=== PATIENT | male | born 1965 | race Caucasian/White ===

== ENCOUNTER 2017-05-17 23:20 | Inpatient (IN) | payer MEDICARE, MEDICAID ==
[~2017-05-17] VITALS: Ht 182.9 cm; Wt 77.0 kg
[2017-05-17 23:31] VITALS: TEMP 97.5
[2017-05-18] VITALS (13 sets, daily range): BP systolic 115–134; BP diastolic 71–90; PULSE 74–101; RESP 18–21; Ht 182.9 cm; Wt 77.0 kg
[2017-05-18] MEDS ORDERED: NITROGLYCERIN 2% 1 GM OINT PKT TD STA (00:36)
[2017-05-18] MEDS ORDERED: ASPIRIN 325 MG TAB PO STA (00:36)
[2017-05-18 00:48] LABS: BASOPHILS % 0.2 % (0.0-2.0); EOSINOPHILS # 0.2 10^3/ul (0.0-0.5); EOSINOPHILS % 2.3 % (0.0-7.0); HEMATOCRIT 41.9 % (42.0-52.0); LYMPHOCYTES # 2.6 10^3/ul (0.8-2.9); LYMPHOCYTES % 31.6 % (15.0-51.0); MEAN CORPUSCULAR HEMOGLOBIN 31.3 pg (29.0-33.0); MEAN CORPUSCULAR HGB CONC 33.4 g/dl (32.0-37.0); MEAN CORPUSCULAR VOLUME 93.7 fl (82.0-101.0); MEAN PLATELET VOLUME 9.8 fl (7.4-10.4); MONOCYTE # 0.4 10^3/ul (0.3-0.9); MONOCYTES % 5.3 % (0.0-11.0); NEUTROPHILS % 60.4 % (39.0-77.0); PLATELET COUNT 364 10^3/UL (140-415); RED BLOOD COUNT 4.47 10^6/ul (4.70-6.10); RED CELL DISTRIBUTION WIDTH 13.2 % (11.5-14.5); WHITE BLOOD COUNT 8.3 10^3/ul (4.8-10.8)
[2017-05-18 00:56] LABS: ALANINE AMINOTRANSFERASE 23 IU/L (13-69); ALBUMIN 3.6 g/dl (3.3-4.9); ALBUMIN/GLOBULIN RATIO 1.28; ALKALINE PHOSPHATASE 80 IU/L (42-121); ANION GAP 13 (8-16); ASPARTATE AMINO TRANSFERASE 16 IU/L (15-46); BILIRUBIN,INDIRECT 0.3 mg/dl (0-1.1); BILIRUBIN,TOTAL 0.3 mg/dl (0.2-1.3); BLOOD UREA NITROGEN 9 mg/dl (7-20); CALCIUM 9.1 mg/dl (8.4-10.2); CARBON DIOXIDE 24 mmol/L (21-31); CHLORIDE 105 mmol/L (97-110); CREATININE 0.58 mg/dl (0.61-1.24); GLUCOSE 154 mg/dl (70-220); POTASSIUM 3.2 mmol/L (3.5-5.1); SODIUM 139 mmol/L (135-144); TOTAL PROTEIN 6.4 g/dl (6.1-8.1)
[2017-05-18 01:09] LABS: INR 0.97; PROTIME 12.9 Sec (12.2-14.2)
[2017-05-18 01:10] LABS: PARTIAL THROMBOPLASTIN TIME 33.3 Sec (25.0-35.0)
--- NOTE | 2017-05-18 01:17 | RADRPT ---
PROCEDURE: XR Chest. CLINICAL INDICATION: Chest pain. TECHNIQUE: Single frontal view of the chest COMPARISON: None. FINDINGS: Cardiomegaly. Atherosclerotic calcifications in the thoracic aorta. Mild discoid atelectasis at the left lung base. The lungs are otherwise clear. No signs of pleural fluid or pneumothorax are seen. T he osseous structures and soft tissues are unremarkable. IMPRESSION: Mild discoid atelectasis at the left lung base. RPTAT: [facility] Physician Gilmer Date Time Electronically viewed and signed by Physician Gilmer on 05/18/2017 01:16 RS/
[2017-05-18 01:22] LABS: TROPONIN-I < 0.012 ng/ml (0.00-0.12)
--- NOTE | 2017-05-18 03:31 | ERA ---
ER Documentation Chief Complaint Date/Time DATE: 05/18/17 TIME: 03:27 Chief Complaint CP radiates to left arm x 2 hrs or 2 days; from [facility] [place] [facility] HPI This is a 52-year-old male here for chest pain. He said the chest pain began yesterday and got worse today. He describes the pain as a pressure in the chest but is a very poor historian. Patient has a history of Lyme disease and is bedridden and unable to walk. He states he has some substernal chest pain radiating down to the left arm or shortness of breath yesterday and today. He resides at a nursing facility and they sent him for evaluation. The patient is a poor historian and is more concerned about getting Rocephin because he thinks his Lyme disease is back pain is about his chest pain. Pain was moderate in nature and currently is gone. ROS All systems reviewed and are negative except as per history of present illness. Medications Home Meds Unable to Obtain Active Prescriptions or Reported Meds Allergies Allergies: Coded Allergies: No Known Allergy (Unverified , 05/17/17) PMhx/Soc Medical and Surgical Hx: Unable to obtain Hx Neurological Disorder: Yes (A+O X 1-2) Hx Cardiac Disorders: Yes (CHEST PAIN X 2 HOURS PER EMS) Hx Alcohol Use: No Hx Substance Use: No Hx Tobacco Use: No Smoking Status: Unknown if ever smoked FmHx Family History: No coronary disease Physical Exam Vitals Vital Signs Date Time Temp Pulse Resp B/P Pulse Ox O2 Delivery O2 Flow Rate FiO2 05/18/17 00:41 Nasal Cannula 2 05/18/17 00:30 73 15 137/92 99 Nasal Cannula 2.0 05/17/17 23:31 97.5 79 14 117/93 96 Nasal Cannula 2.0 05/17/17 23:26 97.9 78 16 121/87 94 Physical Exam Const: Well-developed, well-nourished Head: Atraumatic, normocephalic Eyes: Normal Conjunctiva, PERRLA, EOMI, normal sclera, no nystagmus ENT: Normal External Ears, Nose and Mouth, moist mucus membranes. Neck: Full range of motion. No meningismus, no lymphadenopathy. Resp: Clear to auscultation bilaterally, no wheezing, rhonchi, rales Cardio: Regular rate and rhythm, no murmurs, S1 S2 present Abd: Soft, non tender x 4, non distended. Normal bowel sounds, no guarding or rebound, no pulsitile abdominal masses or bruits Skin: No petechiae or rashes, no ecchymosis , no maculopapular rash Back: No midline or flank tenderness Ext: No cyanosis, or edema, FROM x 4, normal inspection, neurovascularly intact x 4 Neur: Awake and alert, bilateral weak lower extremities which is chronic feet and hands have contractures upper extremities 4-5/5 sensation intact x 4, no focal findings, cerebellum intact Psych: Normal Mood and Affect Result Diagram: 05/17/17 2325 05/17/17 2325 Results 24 hrs Laboratory Tests Test 05/17/17 23:25 White Blood Count 8.310^3/ul Red Blood Count 4.4710^6/ul Hemoglobin 14.0g/dl Hematocrit 41.9% Mean Corpuscular Volume 93.7fl Mean Corpuscular Hemoglobin 31.3pg Mean Corpuscular Hemoglobin Concent 33.4g/dl Red Cell Distribution Width 13.2% Platelet Count 78943^3/UL Mean Platelet Volume 9.8fl Neutrophils % 60.4% Lymphocytes % 31.6% Monocytes % 5.3% Eosinophils % 2.3% Basophils % 0.2% Nucleated Red Blood Cells % 0.0/100WBC Neutrophils # 5.010^3/ul Lymphocytes # 2.610^3/ul Monocytes # 0.410^3/ul Eosinophils # 0.210^3/ul Basophils # 0.010^3/ul Nucleated Red Blood Cells # 0.010^3/ul Prothrombin Time 12.9Sec Prothrombin Time Ratio 1.0 INR International Normalized Ratio 0.97 Activated Partial Thromboplast Time 33.3Sec Sodium Level 139mmol/L Potassium Level 3.2mmol/L Chloride Level 105mmol/L Carbon Dioxide Level 24mmol/L Anion Gap 13 Blood Urea Nitrogen 9mg/dl Creatinine 0.58mg/dl Glucose Level 154mg/dl Calcium Level 9.1mg/dl Total Bilirubin 0.3mg/dl Direct Bilirubin 0.00mg/dl Indirect Bilirubin 0.3mg/dl Aspartate Amino Transf (AST/SGOT) 16IU/L Alanine Aminotransferase (ALT/SGPT) 23IU/L Alkaline Phosphatase 80IU/L Troponin I < 0.012ng/ml Total Protein 6.4g/dl Albumin 3.6g/dl Globulin 2.80g/dl Albumin/Globulin Ratio 1.28 Current Medications Medications (Trade) Dose Ordered Sig/Nohemi Route PRN Reason Start Time Stop Time Status Last Admin Dose Admin Aspirin (Aspirin) 325 mg ONCE STAT PO 05/18/17 00:36 05/18/17 00:37 DC 05/18/17 01:23 Nitroglycerin (Nitroglycerin 2% Oint) 1 inch ONCE STAT TD 05/18/17 00:36 05/18/17 00:37 DC 05/18/17 01:23 Procedures/MDM PROCEDURE: XR Chest. CLINICAL INDICATION: Chest pain. TECHNIQUE: Single frontal view of the chest COMPARISON: None. FINDINGS: Cardiomegaly. Atherosclerotic calcifications in the thoracic aorta. Mild discoid atelectasis at the left lung base. The lungs are otherwise clear. No signs of pleural fluid or pneumothorax are seen. The osseous structures and soft tissues are unremarkable. IMPRESSION: Mild discoid atelectasis at the left lung base. RPTAT: [facility] Physician Gilmer Date Time Electronically viewed and signed by Physician Gilmer on 05/18/2017 01:16 RS/ CC: DEBBIE CASTILLO DO EKG: Rate/Rhythm: Normal Sinus Rhythm,NL intervals QRS, ST, QT: NORMAL NE, QRS, QT] Impression: NORMAL EKG Patient's symptoms are concerning for cardiac cause will require inpatient workup and continuous monitoring. Further w/u for ischemia, arrhythmia, PE or dissection will be deferred to the inpatient team. Accepting Care Team: Current data and ongoing care discussed. Time: Time of admission Primary Provider: STEPHANIE Consulting: STEPHANIE Outstanding Data: none Departure Diagnosis: Primary Impression: Chest pain Qualified Code: R07.9 - Chest pain, unspecified type Condition: Stable DEBBIE CASTILLO DO May 18, 2017 03:31
[2017-05-18] MEDS ORDERED: ONDANSETRON 4 MG INJ IV PRN (04:00)
[2017-05-18] MEDS ORDERED: ACETAMINOPHEN 325 MG TAB PO PRN ×2 (04:00→06:30)
[2017-05-18] MEDS ORDERED: NITROGLYCERIN (SL) 0.4 MG TAB SL PRN (06:30)
[2017-05-18] MEDS: HEPARIN 5,000 UNIT/0.5 ML VIAL SC SCH ×2 (09:29→20:37)
[2017-05-18] MEDS: ASPIRIN 81 MG TAB PO SCH (09:29)
[2017-05-18] MEDS: METOPROLOL 25 MG TAB PO SCH ×2 (09:30→20:36)
--- NOTE | 2017-05-18 09:49 | HP ---
Date/Time of Note Date/Time of Note DATE: 05/18/17 TIME: 09:40 Assessment/Plan VTE Prophylaxis VTE Prophylaxis Intervention: SCD's Lines/Catheters IV [facility] Peripheral IV Urinary Cath still in place: No Assessment/Plan Assessment/Plan 1. Chest pain, rule out ACS -Supplemental oxygen, as needed nitro and morphine. Beta-edwina if pressure allows -Obtain a 2D echo -Cardiology consult 2. 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 Scalp psoriasis - Topical steroid HPI/ROS Admit Date/Time Admit Date/Time May 18, 2017 at 03:32 Hx of Present Illness This is a 52-year-old paraplegic male who presented from [facility] for evaluation of chest pain. He said he has been paraplegic for the past several months as a result of "Lyme infection". Chest pain is slightly left- sided and pressure-like and has been going on for the past 4 days. He reported associated shortness of breath. Denied history of chest pain. As far as Lyme disease is concerned, he said he was treated with Rocephin for a month, but when he got better he stopped taking the antibiotic prematurely. He thinks that is what resulted in the paraplegia. He said if Rocephin is resumed, he should be able to walk again. He is asking for a placement of a PICC line and initiation of Rocephin. . PMH/Family/Social Social History Smoking Status: Unknown if ever smoked Exam/Review of Systems Vital Signs Vitals Vital Signs Date Time Temp Pulse Resp B/P Pulse Ox O2 Delivery O2 Flow Rate FiO2 05/18/17 08:46 85 05/18/17 07:09 97.7 21 119/89 95 05/18/17 06:00 Nasal Cannula 2.0 Exam Constitutional: alert, oriented, other (Increased effort needed when speaking) Head: other (Upper forehead/frontal scalp lesion) Eyes: EOMI, PERRL Respiratory: clear to auscultation, normal air movement Cardiovascular: nl pulses, regular rate and rhythm Gastrointestinal: non-tender, soft Musculoskeletal: other (Bilateral lower extremity with some muscle wasting) Extremities: other (Some muscle wasting noted) Neurological: other (Bilateral lower extremity paralysis) Labs Result Diagram: 05/17/17 5680 05/17/17 2325 Medications Medications Current Medications Aspirin (Aspirin) 81 mg DAILY PO Last administered on 05/18/17 09:29; Admin Dose 81 MG; Start 05/18/17 at 09:00 Nitroglycerin (Nitroglycerin (Sl Tab) 0.4 Mg) 1 tab Q5M PRN SL ANGINA; Start at 06:30 Heparin Sodium (Porcine) (Heparin (5000 Units/0.5 ml)) 5,000 unit BID SC Last administered on 05/18/17 09:29; Admin Dose 5,000 UNIT; Start 05/18/17 at 09:00 Metoprolol Tartrate (Lopressor) 25 mg BID PO Last administered on 05/18/17 09: 30; Admin Dose 25 MG; Start 05/18/17 at 09:00 Acetaminophen (Tylenol Tab) 650 mg Q6H PRN PO PAIN AND OR ELEVATED TEMP; Start 05/18/17 at 06:30 Morphine Sulfate (morphine) 2 mg Q4H PRN IV SEVERE PAIN LEVEL 7-10; Start 05/18 at 06:30 TRINIDAD WEST MD May 18, 2017 09:49
[2017-05-18] MEDS ORDERED: POTASSIUM CHLORIDE (SR) 20 MEQ TAB PO STA (11:56)
[2017-05-18] MEDS ORDERED: PENDING SANTYL ORDER FOR WOUND CARE XX PRN (12:30)
[2017-05-18] MEDS: morphine 2 MG INJ IV PRN (22:42)
[2017-05-19] VITALS (10 sets, daily range): BP systolic 132–177; BP diastolic 74–92; PULSE 70–90; RESP 18–21
[2017-05-19 07:51] LABS: BASOPHILS % 0.3 % (0.0-2.0); EOSINOPHILS # 0.1 10^3/ul (0.0-0.5); EOSINOPHILS % 0.7 % (0.0-7.0); HEMATOCRIT 45.6 % (42.0-52.0); HEMOGLOBIN 14.8 g/dl (14.0-18.0); LYMPHOCYTES # 2.5 10^3/ul (0.8-2.9); LYMPHOCYTES % 22.9 % (15.0-51.0); MEAN CORPUSCULAR HGB CONC 32.5 g/dl (32.0-37.0); MEAN CORPUSCULAR VOLUME 92.5 fl (82.0-101.0); MEAN PLATELET VOLUME 10.1 fl (7.4-10.4); MONOCYTE # 0.8 10^3/ul (0.3-0.9); MONOCYTES % 7.2 % (0.0-11.0); NEUTROPHIL # 7.3 10^3/ul (1.6-7.5); NEUTROPHILS % 68.6 % (39.0-77.0); PLATELET COUNT 365 10^3/UL (140-415); RED BLOOD COUNT 4.93 10^6/ul (4.70-6.10); RED CELL DISTRIBUTION WIDTH 13.4 % (11.5-14.5); WHITE BLOOD COUNT 10.7 10^3/ul (4.8-10.8)
[2017-05-19 08:21] LABS: CALCIUM 9.5 mg/dl (8.4-10.2); CREATININE 0.64 mg/dl (0.61-1.24); POTASSIUM 4.7 mmol/L (3.5-5.1)
[2017-05-19] MEDS: HEPARIN 5,000 UNIT/0.5 ML VIAL SC SCH ×2 (09:00→21:00)
[2017-05-19] MEDS: ASPIRIN 81 MG TAB PO SCH (09:03)
[2017-05-19] MEDS: METOPROLOL 25 MG TAB PO SCH ×2 (09:04→21:40)
[2017-05-19] MEDS ORDERED: NA PHOSPHATE/BIPHOS 133 ML ENEMA PR ONE (17:00)
--- NOTE | 2017-05-19 18:42 | PN ---
Date/Time of Note Date/Time of Note DATE: 05/19/17 TIME: 18:32 Assessment/Plan VTE Prophylaxis VTE Prophylaxis Intervention: heparin Lines/Catheters [facility] Saline Lock Urinary Cath still in place: No Assessment/Plan Chief Complaint/Hosp Course 1. Chest pain-muscular -No evidence of ACS 2. Paraplegia, per patient secondary to [place] infection but story does not make sense -ID consult obtained 3. Scalp psoriasis - Topical steroid Prophylaxis: Heparin Problems: Subjective 24 Hr Interval Summary Gastrointestinal: other (Hungry) Exam/Review of Systems Vital Signs Vitals Vital Signs Date Time Temp Pulse Resp B/P Pulse Ox O2 Delivery O2 Flow Rate FiO2 05/19/17 17:10 84 05/19/17 11:37 98.6 18 137/92 96 05/18/17 06:00 Nasal Cannula 2.0 Intake and Output 05/18/17 05/18/17 05/19/17 15:00 23:00 07:00 Intake Total 720 ml Balance 720 ml Exam Constitutional: alert, oriented Respiratory: clear to auscultation Cardiovascular: regular rate and rhythm Gastrointestinal: soft, No distended Musculoskeletal: nl extremities to inspection Results Result Diagram: 05/19/17 0659 05/19/17 0659 Results 24 hrs Laboratory Tests Test 05/18/17 19:54 05/19/17 06:59 Troponin I < 0.012 C-Reactive Protein 1.2 H White Blood Count 10.7 # Red Blood Count 4.93 Hemoglobin 14.8 Hematocrit 45.6 Mean Corpuscular Volume 92.5 Mean Corpuscular Hemoglobin 30.0 Mean Corpuscular Hemoglobin Concent 32.5 Red Cell Distribution Width 13.4 Platelet Count 365 Mean Platelet Volume 10.1 Neutrophils % 68.6 Lymphocytes % 22.9 Monocytes % 7.2 Eosinophils % 0.7 Basophils % 0.3 Nucleated Red Blood Cells % 0.0 Neutrophils # 7.3 Lymphocytes # 2.5 Monocytes # 0.8 Eosinophils # 0.1 Basophils # 0.0 Nucleated Red Blood Cells # 0.0 Erythrocyte Sedimentation Rate 10.0 Sodium Level 140 Potassium Level 4.7 Chloride Level 107 Carbon Dioxide Level 22 Anion Gap 16 Blood Urea Nitrogen 14 Creatinine 0.64 Glucose Level 92 # Calcium Level 9.5 Medications Medications Current Medications Aspirin (Aspirin) 81 mg DAILY PO Last administered on 05/19/17t 09:03; Admin Dose 81 MG; Start 05/18/17 at 09:00 Nitroglycerin (Nitroglycerin (Sl Tab) 0.4 Mg) 1 tab Q5M PRN SL ANGINA; Start at 06:30 Heparin Sodium (Porcine) (Heparin (5000 Units/0.5 ml)) 5,000 unit BID SC Last administered on 05/18/17 09:29; Admin Dose 5,000 UNIT; Start 05/18/17 at 09:00 Metoprolol Tartrate (Lopressor) 25 mg BID PO Last administered on 05/19/17 09: 04; Admin Dose 25 MG; Start 05/18/17 at 09:00 Acetaminophen (Tylenol Tab) 650 mg Q6H PRN PO PAIN AND OR ELEVATED TEMP; Start 05/18/17 at 06:30 Morphine Sulfate (morphine) 2 mg Q4H PRN IV SEVERE PAIN LEVEL 7-10 Last administered on 05/18/17 22:42; Admin Dose 2 MG; Start 05/18/17 at 06:30 Miscellaneous Information (Pending [facility] Order For Wound Care) This patient lara... PRN PRN XX WOUND CARE; Start 05/18/17 at 12:30 JARON MCKEON May 19, 2017 18:42
[2017-05-20] VITALS (11 sets, daily range): BP systolic 120–148; BP diastolic 69–97; PULSE 71–84; RESP 18–24
--- NOTE | 2017-05-20 00:47 | PN ---
DATE: 05/19/2017 SUBJECTIVE DATA: No events overnight. Patient is lying comfortably in bed. He is afebrile. OBJECTIVE DATA: VITAL SIGNS: Temperature 98.6, pulse 86, respirations 18, blood pressure 137/92, saturation 96 percent. LABORATORY DATA: WBC 10.7, no shift, no bands. BUN 14, creatinine 0.64. GENERAL: This is a debilitated, chronically ill-appearing, middle-aged white man who is in no distress. HEENT: Head atraumatic, normocephalic. Sclerae anicteric. Buccal mucosa dry. NECK: Supple. CHEST: Rise symmetrical. Breath sounds clear. HEART: S1, S2. ABDOMEN: Soft, bowel sounds present. EXTREMITIES: Wasted. SKIN: No jaundice. No cyanosis. Patient has erythema on his scalp. ASSESSMENT: 1. Paraplegia. 2. History of Lyme disease treated with Rocephin. 3. Status post chest pain. Troponin was negative. 4. Incomplete data, as patient is a poor historian. PLAN: Patient is clinically and hemodynamically stable. He is afebrile and without leukocytosis. There is no evidence of acute infectious process and there is no history available on his baseline mental and neurologic status. Will continue observing him off antibiotics, consider neurological evaluation. We will thomas-culture him if he spikes fever. Dictated By: Chante Mendes NP /mar/anand /Document#: [id number]
--- NOTE | 2017-05-20 06:21 | CONS ---
DATE OF ADMISSION: 05/18/2017 DATE OF CONSULTATION: 05/20/2017 REFERRING PHYSICIAN: Hugh Caro MD. HISTORY OF PRESENT ILLNESS: The patient is a 52-year-old, white male, [facility] with chest pain radiating to the left arm, occurring several hours to 2 days prior to admission. The patient was admitted to the hospital and complained also that he had Lyme disease 7 months ago in [place], [place], and was taken care of by Dr. Beau Pate. He states that he had presented with numbness over the upper torso. He also states he had at some point, a target lesion in back of his left ear and neck. He states his dog had this same problem but did not have any rash. I do not know how he could get a history of numbness with the dog, but anyway that is what the history contains. He states that he was treated with a 1-month course of ceftriaxone, and he felt so much better that he stopped taking it. Dr. Pate advised him that if he did not take 3-6 month treatment course, the disease would "bite him on the ass." He states that after that time, he had difficulty walking and became paraplegic. He states that in spite of that he did not except any further treatment; he said because he did not have any money. Somehow, the patient got down here from the jail facility, and on arrival of the hospital here, he had a white count of 8300, 64 polys, 32 lymphs, 5 monocytes, 2 eosinophils, hemoglobin of 14.9 grams, sedimentation rate 10 mm/hour. Chest x- ray revealed left basilar discoid atelectasis. Hematocrit was 42 percent. The patient had on admission a temperature is 98.3, pulse 100, respirations 20, blood pressure 177/74, O2 saturation was 96 percent on room air. He had an electrocardiogram, which revealed a normal sinus rhythm and a normal electrocardiogram. The patient states the he wants to have more ceftriaxone treatment because he thinks his paraplegia will get better. PHYSICAL EXAMINATION: GENERAL: Reveals a talkative, fair-skinned white male who is basically flushed all over and has male pattern baldness and close cropped blond hair. HEENT: He has areas on the apex of his scalp that appeared to be early basal cell carcinomas in the form of the having small superficial hematomas over the area. The pupils are dilated and sluggishly reactive. The patient speaks with a slurred speech. NECK: Supple. CHEST: Clear to auscultation. HEART: Regular, except it is somewhat fast being 92. ABDOMEN: Soft. No palpable organs or masses. EXTREMITIES: Both legs are cold. He has gross touch in place. He does not have any 2-point discrimination, and he has no position sense or any bilateral heel cord shortening. He has no motor function in his lower extremities. IMPRESSION: 1. Chest pain, probably musculoskeletal. 2. Paraplegia. 3. History of Lyme disease with treatment of 1 month with ceftriaxone 7 months ago. RECOMMENDATIONS: I would obtain a neurology consultation, MRI of the head with and without contrast and with IV contrast. I have seen this patient for Dr. Baudilio Luke. Dictated By: José Griggs MD /mar/sal /Document#: [id number]
[2017-05-20] MEDS: ASPIRIN 81 MG TAB PO SCH (08:14)
[2017-05-20] MEDS: METOPROLOL 25 MG TAB PO SCH ×2 (08:14→20:38)
[2017-05-20] MEDS: HEPARIN 5,000 UNIT/0.5 ML VIAL SC SCH ×2 (08:18→20:39)
--- NOTE | 2017-05-20 14:50 | PN ---
Date/Time of Note Date/Time of Note DATE: 05/20/17 TIME: 14:46 Assessment/Plan VTE Prophylaxis VTE Prophylaxis Intervention: heparin Lines/Catheters IV Catheter Type (from [facility]rs[facility]): Saline Lock Assessment/Plan Chief Complaint/Hosp Course 1. Chest pain-muscular -No evidence of ACS 2. Paraplegia, per patient secondary to [place] infection but story does not make sense -ID consult appreciated, no further antibiotics recommended -Neurology consultation obtained 3. Scalp psoriasis - Topical steroid Prophylaxis: Heparin Problems: Subjective 24 Hr Interval Summary Constitutional: no complaints Exam/Review of Systems Vital Signs Vitals Vital Signs Date Time Temp Pulse Resp B/P Pulse Ox O2 Delivery O2 Flow Rate FiO2 05/20/17 12:12 71 05/20/17 11:59 98.0 20 139/83 96 05/18/17 06:00 Nasal Cannula 2.0 Intake and Output 05/19/17 05/19/17 05/20/17 15:00 23:00 07:00 Intake Total 680 ml Output Total 200 ml Balance 480 ml Exam Constitutional: alert Respiratory: clear to auscultation Cardiovascular: regular rate and rhythm Gastrointestinal: soft, No distended Musculoskeletal: nl extremities to inspection Results Result Diagram: 05/19/17 0659 05/19/17 0659 Medications Medications Current Medications Aspirin (Aspirin) 81 mg DAILY PO Last administered on 05/20/17 08:14; Admin Dose 81 MG; Start 05/18/17 at 09:00 Nitroglycerin (Nitroglycerin (Sl Tab) 0.4 Mg) 1 tab Q5M PRN SL ANGINA; Start at 06:30 Heparin Sodium (Porcine) (Heparin (5000 Units/0.5 ml)) 5,000 unit BID SC Last administered on 05/18/17 09:29; Admin Dose 5,000 UNIT; Start 05/18/17 at 09:00 Metoprolol Tartrate (Lopressor) 25 mg BID PO Last administered on 05/20/17 08: 14; Admin Dose 25 MG; Start 05/18/17 at 09:00 Acetaminophen (Tylenol Tab) 650 mg Q6H PRN PO PAIN AND OR ELEVATED TEMP; Start 05/18/17 at 06:30 Morphine Sulfate (morphine) 2 mg Q4H PRN IV SEVERE PAIN LEVEL 7-10 Last administered on 9/14/17at 22:42; Admin Dose 2 MG; Start 05/18/17 at 06:30 Miscellaneous Information (Pending [facility] Order For Wound Care) This patient lara... PRN PRN XX WOUND CARE; Start 05/18/17 at 12:30 JARON MCKEON May 20, 2017 14:50
--- NOTE | 2017-05-20 15:35 | CONS ---
Date/Time of Note Date/Time of Note DATE: 05/20/17 TIME: 15:35 Assessment/Plan Assessment/Plan Chief Complaint/Hosp Course came to see the pt, taken to MRI, will do tomorrow Problems: EYAL EVANS MD May 20, 2017 15:35
[2017-05-21] VITALS (12 sets, daily range): BP systolic 127–156; BP diastolic 78–97; PULSE 72–99; RESP 15–20
[2017-05-21] MEDS: morphine 2 MG INJ IV PRN (01:16)
[2017-05-21] MEDS: LORAZEPAM 1 MG TAB PO PRN (04:05)
[2017-05-21] MEDS ORDERED: morphine 2 MG INJ IV PRN (04:30)
--- NOTE | 2017-05-21 08:22 | RADRPT ---
PROCEDURE: MRI Brain without contrast. CLINICAL INDICATION: Altered mental status, paraplegia, Lyme disease TECHNIQUE: Routine MRI of the brain performed without intravenous contrast. COMPARISON: None FINDINGS: Diffusion: No evidence of acute infarct, recent ischemia, or recent ictal focus. Hemorrhage: No evidence of focal hematoma or subarachnoid hemorrhage. No evidence for remote blood d egradation products. Mass effect/midline shift: None. Parenchymal volume: Mild central parenchymal volume loss is evident. Ventricular system: Concordant with the degree of parenchymal volume. Parenchymal signal changes: Numerous T2 - FLAIR hyperintense foci are present predominately within t he periventricular white matter as well as scattered lesions within the juxta cortical white matter of both cerebral hemispheres. Additionally a foci of increased T2 signal are observed within the kiera s and left cerebral hemisphere. Vasculature: Appropriate flow voids suggesting patency of the central arterial system and visualize d dural venous sinuses. Paranasal sinuses: Clear. Mastoid air cells: Clear. Calvarium: Within normal limits. Extracranial soft tissues: Within normal limits. IMPRESSION: No evidence of acute ischemic changes, mass effect, or intracranial hemorrhage. Numerous T2 - FLAIR hyperintense lesions within the periventricular white matter of both cerebral he mispheres with additional lesions noted in the juxta cortical white matter, wally, and left cerebella r hemisphere concerning for demyelinating lesions. Other infectious/inflammatory process are not exc luded. A contrast-enhanced examination is suggested to assess for acute lesions. RPTAT: AADD .Hugh Lemon MD, Date Time Electronically viewed and signed by .Hugh Lemon MD, on 05/21/2017 08:22 .B/
[2017-05-21 08:25] LABS: CALCIUM 9.7 mg/dl (8.4-10.2); CREATININE 0.58 mg/dl (0.61-1.24); PHOSPHORUS 4.2 mg/dl (2.5-4.9); POTASSIUM 4.3 mmol/L (3.5-5.1)
[2017-05-21] MEDS: ASPIRIN 81 MG TAB PO SCH (10:03)
[2017-05-21] MEDS: HEPARIN 5,000 UNIT/0.5 ML VIAL SC SCH ×2 (10:04→20:36)
[2017-05-21] MEDS: METOPROLOL 25 MG TAB PO SCH ×2 (10:05→20:28)
[2017-05-21] MEDS: METHYLPRED. NA SUCC 1,000 MG in DEXTROSE 5% 50 ML IVPB SCH (18:00)
--- NOTE | 2017-05-21 18:01 | CONS ---
DATE OF ADMISSION: 05/18/2017 DATE OF CONSULTATION: 05/21/2017 Thank you, Dr. Campa for your kind referral for evaluation of Lyme versus multiple sclerosis. HISTORY OF PRESENT ILLNESS: Patient is a 52-year-old gentleman who was transferred from a half-way facility, with complaints of chest pain as well as pain in the left arm, with some possibly weakness in the arm. Patient is not a great historian. But apparently, he stated that he was doing fine until 6 or 7 months ago, when he developed lower paraplegia and was diagnosed with Lyme disease, treated with 1 month of ceftriaxone. He had MRI of the brain in the hospital without contrast, which shows white-matter disease, suspicious for a MS, with some lesions oriented perpendicular to the ventricles. On questioning if patient ever was told that he had a MS, he stated that they were all guessing, but it was one of the guesses in the past. So it is not truly clear if he had any workup done. He stated that he did not have MRI of the spine, which I found strange to believe, given his paraplegia. Again, I am not sure so how good historian he is. MEDICATION: Prior to admission were not available, actually. In the hospital, he is on: 1. Morphine and Ativan for pain. 2. Aspirin 81 mg. 3. Heparin for DVT prevention. 4. Lopressor 25 twice daily. 5. Tylenol p.r.n. SOCIAL HISTORY: No alcohol, tobacco, or drug use. Resident of half-way facility. ALLERGIES: NONE. FAMILY HISTORY: Unrevealing. PHYSICAL EXAMINATION: VITAL SIGNS: Show 97.6 temperature, 74 pulse, 20 respirations, 144/84 blood pressure. GENERAL APPEARANCE: Not in acute distress. Lying in bed. HEENT: Normocephalic, atraumatic head. NECK: No meningeal signs. Patient has some stiffness of the neck to all movements, not only on flexion. LUNGS: Clear to auscultation lungs bilaterally. HEART: Normal cardiac rhythm and sounds. ABDOMEN: Soft. EXTREMITIES: No cyanosis, clubbing, or edema. NEUROLOGIC: Exam: He is awake, alert, and oriented x2. He complains of feeling confused. He has somewhat scanning speech. Visual guerra preserved bilaterally. Pupils reactive from 3-2 mm bilaterally. He has left-sided exotropia and on attempted left gaze, he develops left-beating nystagmus of the left eye and somewhat limited adduction of the right eye. Patient denied any double vision to me. Symmetrical face. Tongue is on midline. Palate elevates symmetrically. Corneal reflexes present bilaterally, as well as gag. Motor strength examination shows weakness in bilateral upper extremities, about 3/5, maybe slightly better on the right. Increased tone, with spasticity on the left. Lower extremities: No movements, increased tone bilaterally, severe paresthesias. Sensory examination grossly intact to light touch, pain and vibration. Deep tendon reflexes: Unable to obtain in the lower extremities, 1+ upper extremities. Equivocal response to plantar stimulation bilaterally. Coordination examination in the right upper extremity, on finger- to-finger testing shows mild tremulousness and dysmetria. LABORATORY: Shows normal CBC, normal comprehensive metabolic panel, normal B12. Elevated C-reactive protein 1.2. ESR normal, at 10. Normal PT, PTT. IMPRESSION: Probable multiple sclerosis. Patient complains of left upper extremity pain and weakness. Complains of being confused. He is not the best historian, so cannot rule out acute exacerbation. I think it is reasonable to give 3 days of IV Solu- Medrol 1 g daily for possible exacerbation. Will obtain MRI of the brain post-contrast study, as well as MRI of the cervical, and thoracic spine for further evaluation as well as lumbar puncture. I doubt that patient patient's symptoms relate to Lyme disease. Continue current treatment. Thank you very much for this interesting consultation. Physical therapy. Dictated By: Leonardo Liu MD /mar/federico /Document#: [id number] NICHOLAS
--- NOTE | 2017-05-21 18:53 | PN ---
Date/Time of Note Date/Time of Note DATE: 05/21/17 TIME: 18:52 Assessment/Plan VTE Prophylaxis VTE Prophylaxis Intervention: heparin Lines/Catheters IV Catheter Type (from Nrs): Saline Lock Assessment/Plan Chief Complaint/Hosp Course 1. Chest pain-muscular -No evidence of ACS 2. Paraplegia, per patient secondary to [place] infection but story does not make sense -ID consult appreciated, no further antibiotics recommended -Neurology consultation appreciated -MRI shows demyelinating process, high-dose steroids have been initiated 3. Scalp psoriasis - Topical steroid Prophylaxis: Heparin Problems: Subjective 24 Hr Interval Summary Constitutional: no complaints Exam/Review of Systems Vital Signs Vitals Vital Signs Date Time Temp Pulse Resp B/P Pulse Ox O2 Delivery O2 Flow Rate FiO2 05/21/17 16:50 98.0 73 20 137/81 98 05/18/17 06:00 Nasal Cannula 2.0 Intake and Output 05/20/17 05/20/17 05/21/17 15:00 23:00 07:00 Intake Total 1420 ml 180 ml Output Total 650 ml Balance 770 ml 180 ml Exam Constitutional: alert, oriented Respiratory: clear to auscultation Cardiovascular: regular rate and rhythm Gastrointestinal: soft, No distended Musculoskeletal: nl extremities to inspection Results Result Diagram: 05/19/17 0659 05/21/17 0731 Results 24 hrs Laboratory Tests Test 05/21/17 07:31 Sodium Level 140 Potassium Level 4.3 Chloride Level 109 Carbon Dioxide Level 24 Anion Gap 11 Blood Urea Nitrogen 14 Creatinine 0.58 L Glucose Level 107 Hemoglobin A1c 5.3 Calcium Level 9.7 Phosphorus Level 4.2 Magnesium Level 2.0 Vitamin B12 Level 663 Rapid Plasma Reagin NONREACTIVE HIV (1&2) Antibody NEGATIVE Medications Medications Current Medications Aspirin (Aspirin) 81 mg DAILY PO Last administered on 05/21/17 10:03; Admin Dose 81 MG; Start 05/18/17 at 09:00 Nitroglycerin (Nitroglycerin (Sl Tab) 0.4 Mg) 1 tab Q5M PRN SL ANGINA; Start at 06:30 Heparin Sodium (Porcine) (Heparin (5000 Units/0.5 ml)) 5,000 unit BID SC Last administered on 05/21/17 10:04; Admin Dose 5,000 UNIT; Start 05/18/17 at 09:00 Metoprolol Tartrate (Lopressor) 25 mg BID PO Last administered on 05/21/17 10: 05; Admin Dose 25 MG; Start 05/18/17 at 09:00 Acetaminophen (Tylenol Tab) 650 mg Q6H PRN PO PAIN AND OR ELEVATED TEMP; Start 05/18/17 at 06:30 Morphine Sulfate (morphine) 2 mg Q4H PRN IV SEVERE PAIN LEVEL 7-10 Last administered on 05/21/17 01:16; Admin Dose 2 MG; Start 05/18/17 at 06:30 [facility] This patient lara... PRN PRN XX WOUND CARE; Start 05/18/17 at 12:30 Lorazepam (Ativan) 0.5 mg Q4 PRN PO AGITATION Last administered on 05/21/17 04 :05; Admin Dose 0.5 MG; Start 05/21/17 at 04:00 Morphine Sulfate 2 mg 2 mg Q2H PRN IM PAIN; Start 05/21/17 at 04:30 Methylprednisolone Sodium Succinate/ Dextrose (Solu-Medrol/D5W) 50 ml @ 100 mls /hr DAILY IVPB ; Start 05/21/17 at 18:00; Stop 05/23/17 at 17:59 JARON MCKEON May 21, 2017 18:53
[2017-05-22] VITALS (13 sets, daily range): BP systolic 120–178; BP diastolic 63–89; PULSE 74–110; RESP 20
[2017-05-22] MEDS: morphine 2 MG INJ IV PRN (00:49)
[2017-05-22] MEDS: METOPROLOL 25 MG TAB PO SCH ×2 (09:00→20:42)
[2017-05-22] MEDS: ASPIRIN 81 MG TAB PO SCH (09:00)
[2017-05-22] MEDS: HEPARIN 5,000 UNIT/0.5 ML VIAL SC SCH ×2 (09:00→20:47)
--- NOTE | 2017-05-22 11:57 | PN ---
Date/Time of Note Date/Time of Note DATE: 05/22/17 TIME: 11:32 Assessment/Plan VTE Prophylaxis VTE Prophylaxis Intervention: heparin Lines/Catheters IV [facility] Peripheral IV Urinary Cath still in place: No Assessment/Plan Assessment/Plan 1. Lower extremity paraplegia with UE weakness - Most probably MS and Neurology on board. Recommendations appreciated - MRI brain, C spine, and Tspine ordered for further evaluation and will need LP - Currently on high dose IV Solu-medrol and will monitor if any improvement in neurological symptoms 2. Psoriasis, scalp - continue topical steroids 3. Chest pain- resolved - most likely musculoskeletal in nature Subjective 24 Hr Interval Summary Free Text/Dictation Patient appears confused and requesting water and a "bite of a burger." He keeps complaining he feels miserable but does not clarify and asks for more food. He is oriented to place and self but train of thought is not fluid. Exam/Review of Systems Vital Signs Vitals Vital Signs Date Time Temp Pulse Resp B/P Pulse Ox O2 Delivery O2 Flow Rate FiO2 05/22/17 08:30 Room Air 05/22/17 08:24 105 05/22/17 08:16 98.1 20 151/78 98 Intake and Output 05/21/17 05/21/17 05/22/17 15:00 23:00 07:00 Intake Total 720 ml Output Total 850 ml Balance -130 ml Exam General: awake and alert. Oriented to self and place. confused and hallucinating food and drinks at bedside CVS: regular rate and rhythm. no murmurs Lungs: CTA b/l. no wheezes Abd: soft, NT, ND. no rebound or guarding Ext: lower extremity wasting , no swelling, cyanosis, clubbing Neuro: +3/5 RUE strength, Increased tone, with spasticity on the left. Lower extremities: No movements, increased tone bilaterally, severe paresthesias. Sensory intact. Results Result Diagram: 05/19/17 0659 05/21/17 0731 Medications Medications Current Medications Aspirin (Aspirin) 81 mg DAILY PO Last administered on 05/21/17t 10:03; Admin Dose 81 MG; Start 05/18/17 at 09:00 Nitroglycerin (Nitroglycerin (Sl Tab) 0.4 Mg) 1 tab Q5M PRN SL ANGINA; Start at 06:30 Heparin Sodium (Porcine) (Heparin (5000 Units/0.5 ml)) 5,000 unit BID SC Last administered on 05/21/17 20:36; Admin Dose 5,000 UNIT; Start 05/18/17 at 09:00 Metoprolol Tartrate (Lopressor) 25 mg BID PO Last administered on 05/21/17 20: 28; Admin Dose 25 MG; Start 05/18/17 at 09:00 Acetaminophen (Tylenol Tab) 650 mg Q6H PRN PO PAIN AND OR ELEVATED TEMP; Start 05/18/17 at 06:30 Morphine Sulfate (morphine) 2 mg Q4H PRN IV SEVERE PAIN LEVEL 7-10 Last administered on 05/22/17 00:49; Admin Dose 2 MG; Start 05/18/17 at 06:30 [facility] This patient lara... PRN PRN XX WOUND CARE; Start 05/18/17 at 12:30 Lorazepam (Ativan) 0.5 mg Q4 PRN PO AGITATION Last administered on 05/21/17 04 :05; Admin Dose 0.5 MG; Start 05/21/17 at 04:00 Morphine Sulfate 2 mg 2 mg Q2H PRN IM PAIN; Start 05/21/17 at 04:30 Methylprednisolone Sodium Succinate/ Dextrose (Solu-Medrol/D5W) 50 ml @ 100 mls /hr DAILY IVPB Last administered on 05/21/17 18:00; Admin Dose 100 MLS/HR; Start 05/21/17 at 18:00; Stop 05/23/17 at 17:59 SARAHY CABRERA MD May 22, 2017 11:47
[2017-05-22] MEDS: METHYLPRED. NA SUCC 1,000 MG in DEXTROSE 5% 50 ML IVPB SCH (12:09)
[2017-05-23] VITALS (11 sets, daily range): BP systolic 127–149; BP diastolic 57–98; PULSE 81–96; RESP 16–18
[2017-05-23] MEDS: HEPARIN 5,000 UNIT/0.5 ML VIAL SC SCH ×2 (09:00→20:21)
[2017-05-23] MEDS: ASPIRIN 81 MG TAB PO SCH (09:00)
[2017-05-23] MEDS: METOPROLOL 25 MG TAB PO SCH ×2 (09:00→20:21)
[2017-05-23] MEDS: METHYLPRED. NA SUCC 1,000 MG in DEXTROSE 5% 50 ML IVPB SCH (09:00)
[2017-05-23 13:02] LABS: ANA SCREEN NEGATIVE (NEGATIVE)
--- NOTE | 2017-05-23 14:49 | PN ---
Date/Time of Note Date/Time of Note DATE: 05/23/17 TIME: 14:45 Assessment/Plan VTE Prophylaxis VTE Prophylaxis Intervention: heparin Lines/Catheters IV Catheter Type (from [facility]): Saline Lock Urinary Cath still in place: No Assessment/Plan Assessment/Plan 1. Lower extremity paraplegia with UE weakness - Most probably MS and Neurology on board. Recommendations appreciated - MRI brain, C spine, and Tspine ordered for further evaluation and will need LP - Spoke with patient about not refusing the MRI so we are able to figure out what is causing his symptoms. He agreed to have imaging studies performed if ear plugs are placed deep enough in his canal - Currently refusing all medications so cannot assess if Solu-medrol is working 2. Psoriasis, scalp - continue topical steroids 3. Chest pain- resolved - most likely musculoskeletal in nature Subjective 24 Hr Interval Summary Free Text/Dictation Patient c/o lower back and buttocks pain from lying on back and requesting to be turned. States he refused the MRI because he feels as if he went deaf from the machine. Per nursing he was noted to have removed the ear plugs. No acute overnight events and no new issues. Exam/Review of Systems Vital Signs Vitals Vital Signs Date Time Temp Pulse Resp B/P Pulse Ox O2 Delivery O2 Flow Rate FiO2 05/23/17 12:23 93 05/23/17 12:21 97.5 18 133/72 94 05/23/17 12:00 Room Air Intake and Output 05/22/17 05/22/17 05/23/17 15:00 23:00 07:00 Intake Total 1650 ml Output Total 200 ml 800 ml Balance 1450 ml -800 ml Exam General: awake and alert. Oriented to self and place. CVS: regular rate and rhythm. no murmurs Lungs: CTA b/l. no wheezes Abd: soft, NT, ND. no rebound or guarding Ext: lower extremity wasting , no swelling, cyanosis, clubbing Neuro: +3/5 RUE strength, Increased tone, with spasticity on the left. Lower extremities: No movements, increased tone bilaterally, severe paresthesias. Sensory intact. Results Result Diagram: 05/19/17 0659 05/21/17 0731 Medications Medications Current Medications Aspirin (Aspirin) 81 mg DAILY PO Last administered on 05/21/17t 10:03; Admin Dose 81 MG; Start 05/18/17 at 09:00 Nitroglycerin (Nitroglycerin (Sl Tab) 0.4 Mg) 1 tab Q5M PRN SL ANGINA; Start at 06:30 Heparin Sodium (Porcine) (Heparin (5000 Units/0.5 ml)) 5,000 unit BID SC Last administered on 05/22/17 20:47; Admin Dose 5,000 UNIT; Start 05/18/17 at 09:00 Metoprolol Tartrate (Lopressor) 25 mg BID PO Last administered on 05/22/17 20: 42; Admin Dose 25 MG; Start 05/18/17 at 09:00 Acetaminophen (Tylenol Tab) 650 mg Q6H PRN PO PAIN AND OR ELEVATED TEMP; Start 05/18/17 at 06:30 Morphine Sulfate (morphine) 2 mg Q4H PRN IV SEVERE PAIN LEVEL 7-10 Last administered on 05/22/17 00:49; Admin Dose 2 MG; Start 05/18/17 at 06:30 Miscellaneous Information (Pending [facility] Order For Wound Care) This patient lara... PRN PRN XX WOUND CARE; Start 05/18/17 at 12:30 Lorazepam (Ativan) 0.5 mg Q4 PRN PO AGITATION Last administered on 05/21/17 04 :05; Admin Dose 0.5 MG; Start 05/21/17 at 04:00 Morphine Sulfate 2 mg 2 mg Q2H PRN IM PAIN; Start 05/21/17 at 04:30 Methylprednisolone Sodium Succinate/ Dextrose (Solu-Medrol/D5W) 50 ml @ 100 mls /hr DAILY IVPB Last administered on 05/22/17 12:09; Admin Dose 100 MLS/HR; Start 05/21/17 at 18:00; Stop 05/23/17 at 17:59 SARAHY CABRERA MD May 23, 2017 14:49
--- NOTE | 2017-05-23 19:47 | CONS ---
Date/Time of Note Date/Time of Note DATE: 05/23/17 TIME: 19:43 Consult Date/Type/Reason Admit Date/Time May 18, 2017 at 03:32 Initial Consult Date Type of Consultation: neurology Subjective No acute events, refused MRIs/L:P, but agreed to have them as i was trying to reason him Objective Vital Signs Date Time Temp Pulse Resp B/P Pulse Ox O2 Delivery O2 Flow Rate FiO2 05/23/17 16:45 Room Air 05/23/17 16:32 81 05/23/17 15:39 98.6 16 149/69 93 Intake and Output 05/22/17 05/22/17 05/23/17 15:00 23:00 07:00 Intake Total 1650 ml Output Total 200 ml 800 ml Balance 1450 ml -800 ml Results/Medications Result Diagram: 05/19/17 0659 05/21/17 0731 Medications Current Medications Aspirin (Aspirin) 81 mg DAILY PO Last administered on 05/21/17 10:03; Admin Dose 81 MG; Start 05/18/17 at 09:00 Nitroglycerin (Nitroglycerin (Sl Tab) 0.4 Mg) 1 tab Q5M PRN SL ANGINA; Start at 06:30 Heparin Sodium (Porcine) (Heparin (5000 Units/0.5 ml)) 5,000 unit BID SC Last administered on 05/22/17 20:47; Admin Dose 5,000 UNIT; Start 05/18/17 at 09:00 Metoprolol Tartrate (Lopressor) 25 mg BID PO Last administered on 05/22/17 20: 42; Admin Dose 25 MG; Start 05/18/17 at 09:00 Acetaminophen (Tylenol Tab) 650 mg Q6H PRN PO PAIN AND OR ELEVATED TEMP; Start 05/18/17 at 06:30 Morphine Sulfate (morphine) 2 mg Q4H PRN IV SEVERE PAIN LEVEL 7-10 Last administered on 05/22/17 00:49; Admin Dose 2 MG; Start 05/18/17 at 06:30 Miscellaneous [facility] This patient lara... PRN PRN XX WOUND CARE; Start 05/18/17 at 12:30 Lorazepam (Ativan) 0.5 mg Q4 PRN PO AGITATION Last administered on 9/17/17at 04 :05; Admin Dose 0.5 MG; Start 05/21/17 at 04:00 Morphine Sulfate (morphine) 2 mg Q2H PRN IM PAIN; Start 05/21/17 at 04:30 Assessment/Plan Chief Complaint/Hosp Course NEUROLOGIC: He is awake, alert, and oriented x2. He complains of feeling confused. He has somewhat scanning speech. Visual guerra preserved bilaterally. Pupils reactive from 3-2 mm bilaterally. He has left-sided exotropia and on attempted left gaze, he develops left-beating nystagmus of the left eye and somewhat limited adduction of the right eye. Symmetrical face. Tongue is on midline. Palate elevates symmetrically. Corneal reflexes present bilaterally, as well as gag. Motor strength examination shows weakness in bilateral upper extremities, about 3/5, maybe slightly better on the right. Increased tone, with spasticity on the left. Lower extremities: No movements, increased tone bilaterally, severe paresthesias. Sensory examination grossly intact to light touch, pain and vibration. Deep tendon reflexes: Unable to obtain in the lower extremities, 1+ upper extremities. Equivocal response to plantar stimulation bilaterally. Coordination examination in the right upper extremity, on finger- to-finger testing shows mild tremulousness and dysmetria. IMPRESSION: Probable multiple sclerosis. Patient complains of left upper extremity pain and weakness. Complains of being confused. Started on IV steroids x 3 days Solu- Medrol 1 g daily for possible exacerbation. Pt agrred for MRIs, was refusing earlier today MRI of the brain post-contrast study, as well as MRI of the cervical, and thoracic spine for further evaluation. LP if AGREES Continue current treatment. Physicalctherapy. Problems: EYAL EVANS MD May 23, 2017 19:47
[2017-05-24] VITALS (11 sets, daily range): BP systolic 118–139; BP diastolic 74–86; PULSE 69–82; RESP 16–18
[2017-05-24 08:27] LABS: BASOPHILS % 0.1 % (0.0-2.0); HEMATOCRIT 43.4 % (42.0-52.0); HEMOGLOBIN 14.3 g/dl (14.0-18.0); LYMPHOCYTES # 1.8 10^3/ul (0.8-2.9); LYMPHOCYTES % 17.9 % (15.0-51.0); MEAN CORPUSCULAR HEMOGLOBIN 30.8 pg (29.0-33.0); MEAN CORPUSCULAR HGB CONC 32.9 g/dl (32.0-37.0); MEAN CORPUSCULAR VOLUME 93.5 fl (82.0-101.0); MEAN PLATELET VOLUME 9.5 fl (7.4-10.4); MONOCYTE # 0.9 10^3/ul (0.3-0.9); MONOCYTES % 9.5 % (0.0-11.0); NEUTROPHIL # 7.1 10^3/ul (1.6-7.5); NEUTROPHILS % 72.2 % (39.0-77.0); PLATELET COUNT 363 10^3/UL (140-415); RED BLOOD COUNT 4.64 10^6/ul (4.70-6.10); RED CELL DISTRIBUTION WIDTH 13.6 % (11.5-14.5); WHITE BLOOD COUNT 9.9 10^3/ul (4.8-10.8)
[2017-05-24 09:01] LABS: ALBUMIN 3.8 g/dl (3.3-4.9); CALCIUM 9.3 mg/dl (8.4-10.2); CREATININE 0.59 mg/dl (0.61-1.24); MAGNESIUM 2.2 mg/dl (1.7-2.5); PHOSPHORUS 4.2 mg/dl (2.5-4.9); POTASSIUM 3.9 mmol/L (3.5-5.1)
[2017-05-24] MEDS: ASPIRIN 81 MG TAB PO SCH (09:02)
[2017-05-24] MEDS: METOPROLOL 25 MG TAB PO SCH ×2 (09:02→21:15)
[2017-05-24] MEDS: HEPARIN 5,000 UNIT/0.5 ML VIAL SC SCH ×2 (09:09→21:09)
--- NOTE | 2017-05-24 15:42 | PN ---
Date/Time of Note Date/Time of Note DATE: 05/24/17 TIME: 15:39 Assessment/Plan VTE Prophylaxis VTE Prophylaxis Intervention: heparin Lines/Catheters IV Catheter Type (from Nrs): Saline Lock Urinary Cath still in place: No Assessment/Plan Assessment/Plan 1. Lower extremity paraplegia with UE weakness - Most probably MS and Neurology on board. Recommendations appreciated - MRI brain, C spine, and Tspine ordered for further evaluation which patient is agreeing to. - Will have PT/OT evaluate patient for discharge planning as well 2. Psoriasis, scalp - continue topical steroids 3. Chest pain- resolved - most likely musculoskeletal in nature Subjective 24 Hr Interval Summary Free Text/Dictation Patient resting comfortably with no new complaints this am. States he is doing fine and still agreeable to MRI being done. Exam/Review of Systems Vital Signs Vitals Vital Signs Date Time Temp Pulse Resp B/P Pulse Ox O2 Delivery O2 Flow Rate FiO2 05/24/17 12:15 82 05/24/17 12:11 98.1 18 118/74 96 05/23/17 16:45 Room Air Intake and Output 05/23/17 05/23/17 05/24/17 15:00 23:00 07:00 Intake Total 900 ml 700 ml Output Total 300 ml 500 ml Balance 600 ml 200 ml Exam General: awake and alert. Oriented to self and place. CVS: regular rate and rhythm. no murmurs Lungs: CTA b/l. no wheezes or crackles Abd: soft, NT, ND. no rebound or guarding Ext: lower extremity wasting , no swelling, cyanosis, clubbing Neuro: +3/5 RUE strength, Increased tone, with spasticity on the left. Lower extremities: No movements, increased tone bilaterally, severe paresthesias. Sensory intact. Results Result Diagram: 05/24/17 0810 05/24/17 0810 Results 24 hrs Laboratory Tests Test 05/24/17 08:10 White Blood Count 9.9 Red Blood Count 4.64 L Hemoglobin 14.3 Hematocrit 43.4 Mean Corpuscular Volume 93.5 Mean Corpuscular Hemoglobin 30.8 Mean Corpuscular Hemoglobin Concent 32.9 Red Cell Distribution Width 13.6 Platelet Count 363 Mean Platelet Volume 9.5 Neutrophils % 72.2 Lymphocytes % 17.9 Monocytes % 9.5 Eosinophils % 0.0 Basophils % 0.1 Nucleated Red Blood Cells % 0.0 Neutrophils # 7.1 Lymphocytes # 1.8 Monocytes # 0.9 Eosinophils # 0.0 Basophils # 0.0 Nucleated Red Blood Cells # 0.0 Sodium Level 142 Potassium Level 3.9 Chloride Level 107 Carbon Dioxide Level 27 Anion Gap 12 Blood Urea Nitrogen 20 Creatinine 0.59 L Glucose Level 107 Calcium Level 9.3 Phosphorus Level 4.2 Magnesium Level 2.2 Albumin 3.8 Medications Medications Current Medications Aspirin (Aspirin) 81 mg DAILY PO Last administered on 05/24/17 09:02; Admin Dose 81 MG; Start 05/18/17 at 09:00 Nitroglycerin (Nitroglycerin (Sl Tab) 0.4 Mg) 1 tab Q5M PRN SL ANGINA; Start at 06:30 Heparin Sodium (Porcine) (Heparin (5000 Units/0.5 ml)) 5,000 unit BID SC Last administered on 05/24/17 09:09; Admin Dose 5,000 UNIT; Start 05/18/17 at 09:00 Metoprolol Tartrate (Lopressor) 25 mg BID PO Last administered on 05/24/17 09: 02; Admin Dose 25 MG; Start 05/18/17 at 09:00 Acetaminophen (Tylenol Tab) 650 mg Q6H PRN PO PAIN AND OR ELEVATED TEMP; Start 05/18/17 at 06:30 Morphine Sulfate (morphine) 2 mg Q4H PRN IV SEVERE PAIN LEVEL 7-10 Last administered on 05/22/17 00:49; Admin Dose 2 MG; Start 05/18/17 at 06:30 Miscellaneous Information (Pending [facility] Order For Wound Care) This patient lara... PRN PRN XX WOUND CARE; Start 05/18/17 at 12:30 Lorazepam (Ativan) 0.5 mg Q4 PRN PO AGITATION Last administered on 05/21/17 04 :05; Admin Dose 0.5 MG; Start 05/21/17 at 04:00 Morphine Sulfate (morphine) 2 mg Q2H PRN IM PAIN; Start 05/21/17 at 04:30 SARAHY CABRERA MD May 24, 2017 15:42
[2017-05-25] VITALS (12 sets, daily range): BP systolic 120–149; BP diastolic 78–99; PULSE 61–84; RESP 18–20
[2017-05-25] MEDS: ASPIRIN 81 MG TAB PO SCH (08:41)
[2017-05-25] MEDS: METOPROLOL 25 MG TAB PO SCH ×2 (08:41→20:29)
[2017-05-25] MEDS: HEPARIN 5,000 UNIT/0.5 ML VIAL SC SCH ×2 (09:00→20:35)
[2017-05-25] MEDS: morphine 2 MG INJ IV PRN ×2 (10:58→11:01)
--- NOTE | 2017-05-25 10:58 | PN ---
Date/Time of Note Date/Time of Note DATE: 05/25/17 TIME: 10:58 Assessment/Plan VTE Prophylaxis VTE Prophylaxis Intervention: SCD's Lines/Catheters IV Catheter Type (from Nrs): Saline Lock Urinary Cath still in place: No Assessment/Plan Assessment/Plan 1. Lower extremity paraplegia with UE weakness - Most probably MS and Neurology on board. Recommendations appreciated - MRI brain, C spine, and Tspine ordered for further evaluation which patient is agreeing to but has not been performed yet - No cardiac issues since admission and will transfer to general med/surg 2. Psoriasis, scalp - continue topical steroids 3. Chest pain- resolved - most likely musculoskeletal in nature 4. PT/OT - awaiting discharge recommendations Subjective 24 Hr Interval Summary Free Text/Dictation Patient requesting diet coke and something to eat but denies any new complaints. No acute overnight events. Works with PT/OT this am as well. Exam/Review of Systems Vital Signs Vitals Vital Signs Date Time Temp Pulse Resp B/P Pulse Ox O2 Delivery O2 Flow Rate FiO2 05/25/17 08:31 84 05/25/17 08:24 98.3 18 124/86 91 05/23/17 16:45 Room Air Intake and Output 05/24/17 05/24/17 05/25/17 15:00 23:00 07:00 Intake Total 550 ml 860 ml Output Total 650 ml 450 ml Balance -100 ml 410 ml Exam General: awake and alert. Oriented to self and place. CVS: regular rate and rhythm. no murmurs Lungs: CTA b/l. no wheezes or crackles Abd: soft, NT, ND. no rebound or guarding Ext: lower extremity wasting , no swelling, cyanosis, clubbing Neuro: +3/5 RUE strength, Increased tone, with spasticity on the left. Lower extremities: No movements, increased tone bilaterally, severe paresthesias. Results Result Diagram: 05/24/17 0810 05/24/17 0810 Results 24 hrs Laboratory Tests Test 05/25/17 07:05 White Blood Count Pending Red Blood Count Pending Hemoglobin Pending Hematocrit Pending Mean Corpuscular Volume Pending Mean Corpuscular Hemoglobin Pending Mean Corpuscular Hemoglobin Concent Pending Red Cell Distribution Width Pending Platelet Count Pending Mean Platelet Volume Pending Medications Medications Current Medications Aspirin (Aspirin) 81 mg DAILY PO Last administered on 05/25/17 08:41; Admin Dose 81 MG; Start 05/18/17 at 09:00 Nitroglycerin (Nitroglycerin (Sl Tab) 0.4 Mg) 1 tab Q5M PRN SL ANGINA; Start at 06:30 Heparin Sodium (Porcine) (Heparin (5000 Units/0.5 ml)) 5,000 unit BID SC Last administered on 05/24/17 21:09; Admin Dose 5,000 UNIT; Start 05/18/17 at 09:00 Metoprolol Tartrate (Lopressor) 25 mg BID PO Last administered on 05/25/17 08: 41; Admin Dose 25 MG; Start 05/18/17 at 09:00 Acetaminophen (Tylenol Tab) 650 mg Q6H PRN PO PAIN AND OR ELEVATED TEMP; Start 05/18/17 at 06:30 Morphine Sulfate (morphine) 2 mg Q4H PRN IV SEVERE PAIN LEVEL 7-10 Last administered on 05/22/17 00:49; Admin Dose 2 MG; Start 05/18/17 at 06:30 [facility] This patient lara... PRN PRN XX WOUND CARE; Start 05/18/17 at 12:30 Lorazepam (Ativan) 0.5 mg Q4 PRN PO AGITATION Last administered on 05/21/17 04 :05; Admin Dose 0.5 MG; Start 05/21/17 at 04:00 Morphine Sulfate (morphine) 2 mg Q2H PRN IM PAIN; Start 05/21/17 at 04:30 SARAHY CABRERA MD May 25, 2017 10:58
--- NOTE | 2017-05-25 20:25 | CONS ---
Date/Time of Note Date/Time of Note DATE: 05/25/17 TIME: Consult Date/Type/Reason Admit Date/Time May 18, 2017 at 03:32 Initial Consult Date Type of Consultation: neurology Ordering Provider: SARAHY CABRERA MD Subjective agreeable to further neurologic testing contrast imaging and LP to eval for MS tests are pending he reports feeling frustrated that he has not received a diagnosis Objective Vital Signs Date Time Temp Pulse Resp B/P Pulse Ox O2 Delivery O2 Flow Rate FiO2 05/25/17 16:28 82 05/25/17 15:31 98.3 18 140/99 98 05/23/17 16:45 Room Air Intake and Output 05/24/17 05/24/17 05/25/17 15:00 23:00 07:00 Intake Total 550 ml 860 ml Output Total 650 ml 450 ml Balance -100 ml 410 ml Exam awake and alert oriented x2 follows commands CN: BRANDON, left sided exotropia on attempted left lateral gae, left beating nystagmus of left eye and limited adduction of right eye facial sensation intact corneals reflexes present Motor strength examination shows weakness in bilateral upper extremities, about 3/5, maybe slightly better on the right. Increased tone, with spasticity on the left. Lower extremities: No movements, increased tone bilaterally, severe paresthesias. Sensory examination grossly intact to light touch, pain and vibration. Deep tendon reflexes: Unable to obtain in the lower extremities, 1+ upper extremities. Equivocal response to plantar stimulation bilaterally. Coordination examination in the right upper extremity, on finger- to-finger testing shows mild tremulousness and dysmetria. Results/Medications Result Diagram: 05/24/17 0810 05/24/17 0810 Medications Current Medications Aspirin (Aspirin) 81 mg DAILY PO Last administered on 05/25/17 08:41; Admin Dose 81 MG; Start 05/18/17 at 09:00 Nitroglycerin (Nitroglycerin (Sl Tab) 0.4 Mg) 1 tab Q5M PRN SL ANGINA; Start at 06:30 Heparin Sodium (Porcine) (Heparin (5000 Units/0.5 ml)) 5,000 unit BID SC Last administered on 05/24/17 21:09; Admin Dose 5,000 UNIT; Start 05/18/17 at 09:00 Metoprolol Tartrate (Lopressor) 25 mg BID PO Last administered on 05/25/17 08: 41; Admin Dose 25 MG; Start 05/18/17 at 09:00 Acetaminophen (Tylenol Tab) 650 mg Q6H PRN PO PAIN AND OR ELEVATED TEMP; Start 05/18/17 at 06:30 Morphine Sulfate (morphine) 2 mg Q4H PRN IV SEVERE PAIN LEVEL 7-10 Last administered on 05/25/17 11:01; Admin Dose 2 MG; Start 05/18/17 at 06:30 [facility] This patient lara... PRN PRN XX WOUND CARE; Start 05/18/17 at 12:30 Lorazepam (Ativan) 0.5 mg Q4 PRN PO AGITATION Last administered on 05/21/17 04 :05; Admin Dose 0.5 MG; Start 05/21/17 at 04:00 Morphine Sulfate (morphine) 2 mg Q2H PRN IM PAIN; Start 05/21/17 at 04:30 Assessment/Plan Chief Complaint/Hosp Course 52 yo male reports over 9 months of symptoms of paraparesis and ophthalmoplegia with probable multiple sclerosis on IV Steroids for 3 days. Recommendations: MRI Brain post contrast, MRI Cervical and Thoracic Spine w contrast LP studies pending DVT ppx monitor glucose and PPI on steroids PT/OT/Speech Problems: ZEE TURNER MD May 25, 2017 20:25
[2017-05-26] MEDS: LORAZEPAM 1 MG TAB PO PRN ×3 (02:29→19:37)
[2017-05-26 02:54] VITALS: BP 117/77; RESP 18
[2017-05-26 07:59] VITALS: BP 137/85; RESP 18
[2017-05-26] MEDS: METOPROLOL 25 MG TAB PO SCH ×2 (08:41→21:01)
[2017-05-26] MEDS: HEPARIN 5,000 UNIT/0.5 ML VIAL SC SCH ×2 (08:45→21:03)
[2017-05-26] MEDS: ASPIRIN 81 MG TAB PO SCH (09:22)
--- NOTE | 2017-05-26 14:28 | PN ---
Date/Time of Note Date/Time of Note DATE: 05/26/17 TIME: 14:21 Assessment/Plan VTE Prophylaxis VTE Prophylaxis Intervention: SCD's Lines/Catheters IV Catheter Type (from Nrs): Saline Lock Urinary Cath still in place: No Assessment/Plan Assessment/Plan 1. Lower extremity paraplegia with UE weakness - Most probably MS and Neurology on board. Recommendations appreciated - Patient agreed to MRI brain, C spine, and Tspine which were ordered but refusing LP. Explained would be able to send CSF for further studies to find out why he has paraplegia. 2. Psoriasis, scalp - continue topical steroids 3. Chest pain- resolved - most likely musculoskeletal in nature 4. PT/OT - awaiting discharge recommendations 5. Disposition - If patient continues to refuse treatment/imaging, he will be stable for discharge. He was informed he would be able to pursue further evaluation at [facility] if he wishes but transfer would not be logical since thorough workup would be able to be performed here. Subjective 24 Hr Interval Summary Free Text/Dictation Patient states he would like to be transferred to [facility] in order to be treated by [facility] doctors. Explained to patient he can receive the same treatment at this hospital if he stops refusing treatment and imaging studies. No acute overnight events. Exam/Review of Systems Vital Signs Vitals Vital Signs Date Time Temp Pulse Resp B/P Pulse Ox O2 Delivery O2 Flow Rate FiO2 05/26/17 07:59 97.7 76 18 137/85 99 05/23/17 16:45 Room Air Intake and Output 05/25/17 05/25/17 05/26/17 15:00 23:00 07:00 Intake Total 720 ml 580 ml Balance 720 ml 580 ml Exam General: awake and alert. Oriented to self and place. CVS: regular rate and rhythm. no murmurs Lungs: CTA b/l. no wheezes or crackles Abd: soft, NT, ND. no rebound or guarding Ext: lower extremity wasting , no swelling, cyanosis, clubbing Neuro: +3/5 RUE strength, Increased tone, with spasticity on the left. Lower extremities: No movements, increased tone bilaterally, severe paresthesias. Results Result Diagram: 05/24/17 0810 05/24/17 0810 Medications Medications Current Medications Aspirin (Aspirin) 81 mg DAILY PO Last administered on 05/26/17t 09:22; Admin Dose 81 MG; Start 05/18/17 at 09:00 Nitroglycerin (Nitroglycerin (Sl Tab) 0.4 Mg) 1 tab Q5M PRN SL ANGINA; Start at 06:30 Heparin Sodium (Porcine) (Heparin (5000 Units/0.5 ml)) 5,000 unit BID SC Last administered on 05/26/17 08:45; Admin Dose 5,000 UNIT; Start 05/18/17 at 09:00 Metoprolol Tartrate (Lopressor) 25 mg BID PO Last administered on 05/26/17 08: 41; Admin Dose 25 MG; Start 05/18/17 at 09:00 Acetaminophen (Tylenol Tab) 650 mg Q6H PRN PO PAIN AND OR ELEVATED TEMP; Start 05/18/17 at 06:30 Morphine Sulfate (morphine) 2 mg Q4H PRN IV SEVERE PAIN LEVEL 7-10 Last administered on 05/25/17 11:01; Admin Dose 2 MG; Start 05/18/17 at 06:30 Miscellaneous Information (Pending [facility] Order For Wound Care) This patient lara... PRN PRN XX WOUND CARE; Start 05/18/17 at 12:30 Lorazepam (Ativan) 0.5 mg Q4 PRN PO AGITATION Last administered on 05/26/17 08 :50; Admin Dose 0.5 MG; Start 05/21/17 at 04:00 Morphine Sulfate (morphine) 2 mg Q2H PRN IM PAIN; Start 05/21/17 at 04:30 SARAHY CABRERA MD May 26, 2017 14:28
[2017-05-26 15:40] VITALS: BP 130/72; RESP 18
--- NOTE | 2017-05-26 17:05 | CONS ---
Date/Time of Note Date/Time of Note DATE: 05/26/17 TIME: 17:01 Assessment/Plan Assessment/Plan Chief Complaint/Hosp Course Generalized weakness Problems: Additional Assessment/Plan 52 yo male reports over 9 months of symptoms of paraparesis and ophthalmoplegia with probable multiple sclerosis on IV Steroids for 3 days. MRI of the brain showed multiple bihemispheric white matter lesions suspicion for MS. Recommendations: MRI Cervical and Thoracic Spine w contrast are pending LP studies pending DVT ppx monitor glucose and PPI on steroids PT/OT/Speech Consultation Date/Type/Reason Admit Date/Time May 18, 2017 at 03:32 Initial Consult Date Type of Consultation: neurology Referring Provider: SARAHY CABRERA MD 24 HR Interval Summary Free Text/Dictation MRI of the brain showed multiple white matter lesions suspicious for MS. MRI of the C-spine and thoracic spine are pending. Lumbar puncture is pending. Exam/Review of Systems Vital Signs Vitals Vital Signs Date Time Temp Pulse Resp B/P Pulse Ox O2 Delivery O2 Flow Rate FiO2 05/26/17 15:40 98.7 97 18 130/72 96 05/23/17 16:45 Room Air Intake and Output 05/25/17 05/25/17 05/26/17 15:00 23:00 07:00 Intake Total 720 ml 580 ml Balance 720 ml 580 ml Exam Constitutional: alert, oriented, well developed Psych: nl mood/affect, no complaints Head: atraumatic, normocephalic Eyes: EOMI, nl conjunctiva, nl lids, nl sclera ENMT: mucosa pink and moist, nl external ears & nose, nl lips & teeth, nl nasal mucosa & septum Neck: non-tender, supple Respiratory: clear to auscultation, normal air movement Cardiovascular: nl pulses, regular rate and rhythm Gastrointestinal: nl liver, spleen, non-tender, soft Neurological: [employer] II-XII intact, other (Mild diffuse weakness bilateral upper and lower extremities) Results Result Diagram: 05/24/17 0810 05/24/17 0810 Medications Medications Current Medications Aspirin (Aspirin) 81 mg DAILY PO Last administered on 05/26/17t 09:22; Admin Dose 81 MG; Start 05/18/17 at 09:00 Nitroglycerin (Nitroglycerin (Sl Tab) 0.4 Mg) 1 tab Q5M PRN SL ANGINA; Start at 06:30 Heparin Sodium (Porcine) (Heparin (5000 Units/0.5 ml)) 5,000 unit BID SC Last administered on 05/26/17 08:45; Admin Dose 5,000 UNIT; Start 05/18/17 at 09:00 Metoprolol Tartrate (Lopressor) 25 mg BID PO Last administered on 05/26/17 08: 41; Admin Dose 25 MG; Start 05/18/17 at 09:00 Acetaminophen (Tylenol Tab) 650 mg Q6H PRN PO PAIN AND OR ELEVATED TEMP; Start 05/18/17 at 06:30 Morphine Sulfate (morphine) 2 mg Q4H PRN IV SEVERE PAIN LEVEL 7-10 Last administered on 05/25/17 11:01; Admin Dose 2 MG; Start 05/18/17 at 06:30 Miscellaneous Information (Pending [facility] Order For Wound Care) This patient lara... PRN PRN XX WOUND CARE; Start 05/18/17 at 12:30 Lorazepam (Ativan) 0.5 mg Q4 PRN PO AGITATION Last administered on 05/26/17 08 :50; Admin Dose 0.5 MG; Start 05/21/17 at 04:00 Morphine Sulfate (morphine) 2 mg Q2H PRN IM PAIN; Start 05/21/17 at 04:30 Procedures Procedures MRI of the brain 05/21/2017 IMPRESSION: No evidence of acute ischemic changes, mass effect, or intracranial hemorrhage. Numerous T2 - FLAIR hyperintense lesions within the periventricular white matter of both cerebral hemispheres with additional lesions noted in the juxta cortical white matter, wally, and left cerebellar hemisphere concerning for demyelinating lesions. Other infectious/inflammatory process are not excluded. A contrast-enhanced examination is suggested to assess for acute lesions. RPTAT: AADD .Hugh Lemon MD, MD Date Time Electronically viewed and signed by .Hugh Lemon MD, MD on 05/21/2017 08:22 RADHA REYES MD May 26, 2017 17:05
[2017-05-26 19:59] VITALS: BP 132/81; RESP 18
[2017-05-26 21:00] VITALS: BP 124/90; PULSE 84
[2017-05-27] MEDS: morphine 10 MG INJ IM PRN ×2 (00:55→18:24)
[2017-05-27 01:52] VITALS: BP 135/91; RESP 18
[2017-05-27 08:20] VITALS: BP 130/95; RESP 18
[2017-05-27] MEDS: ASPIRIN 81 MG TAB PO SCH (09:16)
[2017-05-27] MEDS: METOPROLOL 25 MG TAB PO SCH ×2 (09:16→20:02)
[2017-05-27] MEDS: LORAZEPAM 1 MG TAB PO PRN ×2 (09:17→20:01)
[2017-05-27 09:19] VITALS: BP 140/92; PULSE 101
[2017-05-27] MEDS: HEPARIN 5,000 UNIT/0.5 ML VIAL SC SCH ×2 (10:07→20:05)
--- NOTE | 2017-05-27 14:16 | PN ---
Date/Time of Note Date/Time of Note DATE: 05/27/17 TIME: 14:11 Assessment/Plan VTE Prophylaxis VTE Prophylaxis Intervention: SCD's Lines/Catheters IV Catheter Type (from Nrsg): NONE Urinary Cath still in place: No Assessment/Plan Assessment/Plan 1. Lower extremity paraplegia with UE weakness - Most probably MS and Neurology on board. Recommendations appreciated - Patient continues to refuse all imaging and procedures. Requesting to have workup performed at [facility] 2. Psoriasis, scalp - continue topical steroids 3. Chest pain- resolved - most likely musculoskeletal in nature 4. PT/OT 5. Disposition - SW assisting with finding out where patient comes from since he is a poor historian. Patient is stable for discharge once clarifiy where home is for him and will encourage to seek further workup at [facility] since continues to refuse at [facility]. Subjective 24 Hr Interval Summary Free Text/Dictation Patient resting comfortable. Continues to refuse all imaging and LP and requesting to go to [facility]. No acute overnight events. Exam/Review of Systems Vital Signs Vitals Vital Signs Date Time Temp Pulse Resp B/P Pulse Ox O2 Delivery O2 Flow Rate FiO2 05/27/17 09:19 101 140/92 05/27/17 08:20 97.2 18 93 05/23/17 16:45 Room Air Intake and Output 05/26/17 05/26/17 05/27/17 15:00 23:00 07:00 Intake Total 2970 ml Balance 2970 ml Exam General: resting comfortably. NAD. CVS: regular rate and rhythm. no murmurs Lungs: CTA b/l. no wheezes or crackles Abd: soft, NT, ND. no rebound or guarding Ext: lower extremity wasting , no swelling, cyanosis, clubbing Neuro: +3/5 RUE strength, Increased tone, with spasticity on the left. Lower extremities: No movements, increased tone bilaterally, severe paresthesias. Results Result Diagram: 05/24/1710 05/24/1710 Medications Medications Current Medications Aspirin (Aspirin) 81 mg DAILY PO Last administered on 05/27/17t 09:16; Admin Dose 81 MG; Start 05/18/17 at 09:00 Nitroglycerin (Nitroglycerin (Sl Tab) 0.4 Mg) 1 tab Q5M PRN SL ANGINA; Start at 06:30 Heparin Sodium (Porcine) (Heparin (5000 Units/0.5 ml)) 5,000 unit BID SC Last administered on 05/27/17 10:07; Admin Dose 5,000 UNIT; Start 05/18/17 at 09:00 Metoprolol Tartrate (Lopressor) 25 mg BID PO Last administered on 05/27/17 09: 16; Admin Dose 25 MG; Start 05/18/17 at 09:00 Acetaminophen (Tylenol Tab) 650 mg Q6H PRN PO PAIN AND OR ELEVATED TEMP; Start 05/18/17 at 06:30 Morphine Sulfate (morphine) 2 mg Q4H PRN IV SEVERE PAIN LEVEL 7-10 Last administered on 05/25/17 11:01; Admin Dose 2 MG; Start 05/18/17 at 06:30 Miscellaneous Information (Pending [facility] Order For Wound Care) This patient lara... PRN PRN XX WOUND CARE; Start 05/18/17 at 12:30 Lorazepam (Ativan) 0.5 mg Q4 PRN PO AGITATION Last administered on 05/27/17 09 :17; Admin Dose 0.5 MG; Start 05/21/17 at 04:00 Morphine Sulfate (morphine) 2 mg Q2H PRN IM PAIN Last administered on 00:55; Admin Dose 2 MG; Start 05/21/17 at 04:30 SARAHY CABRERA MD May 27, 2017 14:16
[2017-05-27 15:19] VITALS: BP 121/74; RESP 18
[2017-05-27 15:38] LABS: BASOPHILS % 0.2 % (0.0-2.0); EOSINOPHILS # 0.2 10^3/ul (0.0-0.5); EOSINOPHILS % 1.4 % (0.0-7.0); HEMATOCRIT 44.8 % (42.0-52.0); HEMOGLOBIN 15.1 g/dl (14.0-18.0); LYMPHOCYTES # 2.5 10^3/ul (0.8-2.9); LYMPHOCYTES % 20.6 % (15.0-51.0); MEAN CORPUSCULAR HEMOGLOBIN 31.3 pg (29.0-33.0); MEAN CORPUSCULAR HGB CONC 33.7 g/dl (32.0-37.0); MEAN CORPUSCULAR VOLUME 92.9 fl (82.0-101.0); MEAN PLATELET VOLUME 9.7 fl (7.4-10.4); MONOCYTE # 0.8 10^3/ul (0.3-0.9); MONOCYTES % 6.4 % (0.0-11.0); NEUTROPHIL # 8.8 10^3/ul (1.6-7.5); PLATELET COUNT 394 10^3/UL (140-415); RED BLOOD COUNT 4.82 10^6/ul (4.70-6.10); RED CELL DISTRIBUTION WIDTH 13.2 % (11.5-14.5); WHITE BLOOD COUNT 12.4 10^3/ul (4.8-10.8)
[2017-05-27 16:00] LABS: ALBUMIN 4.1 g/dl (3.3-4.9); CALCIUM 8.8 mg/dl (8.4-10.2); CREATININE 0.64 mg/dl (0.61-1.24); PHOSPHORUS 3.7 mg/dl (2.5-4.9); POTASSIUM 3.8 mmol/L (3.5-5.1)
[2017-05-27 19:50] VITALS: BP 126/85; RESP 20
[2017-05-28] MEDS: LORAZEPAM 1 MG TAB PO PRN ×3 (00:48→19:02)
[2017-05-28 02:00] VITALS: BP 120/80; RESP 20
[2017-05-28 09:00] VITALS: BP 135/103; PULSE 89; RESP 18
[2017-05-28] MEDS: METOPROLOL 25 MG TAB PO SCH ×2 (09:25→20:19)
[2017-05-28] MEDS: ASPIRIN 81 MG TAB PO SCH (09:26)
[2017-05-28] MEDS: HEPARIN 5,000 UNIT/0.5 ML VIAL SC SCH ×2 (09:42→20:24)
[2017-05-28 09:43] VITALS: BP 130/98; PULSE 89
--- NOTE | 2017-05-28 12:24 | CONS ---
Date/Time of Note Date/Time of Note DATE: 05/28/17 TIME: 12:19 Assessment/Plan Assessment/Plan Chief Complaint/Hosp Course Generalized weakness Problems: Additional Assessment/Plan 52 yo male reports over 9 months of symptoms of paraparesis and ophthalmoplegia with probable multiple sclerosis on IV Steroids for 3 days. MRI of the brain showed multiple bihemispheric white matter lesions suspicion for MS. 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 Patient refused MRI of C Spine and T Spine. He also refused LP. He is insisting to be transferred to [facility]. Exam/Review of Systems Vital Signs Vitals Vital Signs Date Time Temp Pulse Resp B/P Pulse Ox O2 Delivery O2 Flow Rate FiO2 05/28/17 09:43 89 130/98 05/28/17 09:00 98.0 18 95 Room Air Intake and Output 05/27/17 05/27/17 05/28/17 15:00 23:00 07:00 Intake Total 400 ml 1660 ml Balance 400 ml 1660 ml Exam Constitutional: alert Psych: confusion, no complaints Head: atraumatic, normocephalic Eyes: EOMI, nl conjunctiva, nl lids ENMT: nl external ears & nose, nl lips & teeth Neck: non-tender, supple Respiratory: clear to auscultation, normal air movement Cardiovascular: nl pulses, regular rate and rhythm Gastrointestinal: nl liver, spleen, non-tender (Awake and alert, follows simple commands, paraplegic, hyper reflexia, bilateral babinski), soft Results Result Diagram: 05/27/17 1504 05/27/17 1504 Results 24 hrs Laboratory Tests Test 05/27/17 15:04 White Blood Count 12.4 #H Red Blood Count 4.82 Hemoglobin 15.1 Hematocrit 44.8 Mean Corpuscular Volume 92.9 Mean Corpuscular Hemoglobin 31.3 Mean Corpuscular Hemoglobin Concent 33.7 Red Cell Distribution Width 13.2 Platelet Count 394 Mean Platelet Volume 9.7 Neutrophils % 71.0 Lymphocytes % 20.6 Monocytes % 6.4 Eosinophils % 1.4 Basophils % 0.2 Nucleated Red Blood Cells % 0.0 Neutrophils # 8.8 H Lymphocytes # 2.5 Monocytes # 0.8 Eosinophils # 0.2 Basophils # 0.0 Nucleated Red Blood Cells # 0.0 Sodium Level 141 Potassium Level 3.8 Chloride Level 107 Carbon Dioxide Level 22 Anion Gap 16 Blood Urea Nitrogen 14 Creatinine 0.64 Glucose Level 117 Calcium Level 8.8 Phosphorus Level 3.7 Magnesium Level 2.0 Albumin 4.1 Medications Medications Current Medications Aspirin (Aspirin) 81 mg DAILY PO Last administered on 05/28/17 09:26; Admin Dose 81 MG; Start 05/18/17 at 09:00 Nitroglycerin (Nitroglycerin (Sl Tab) 0.4 Mg) 1 tab Q5M PRN SL ANGINA; Start at 06:30 Heparin Sodium (Porcine) (Heparin (5000 Units/0.5 ml)) 5,000 unit BID SC Last administered on 05/28/17 09:42; Admin Dose 5,000 UNIT; Start 05/18/17 at 09:00 Metoprolol Tartrate (Lopressor) 25 mg BID PO Last administered on 05/28/17 09: 25; Admin Dose 25 MG; Start 05/18/17 at 09:00 Acetaminophen (Tylenol Tab) 650 mg Q6H PRN PO PAIN AND OR ELEVATED TEMP; Start 05/18/17 at 06:30 Morphine Sulfate (morphine) 2 mg Q4H PRN IV SEVERE PAIN LEVEL 7-10 Last administered on 05/25/17 11:01; Admin Dose 2 MG; Start 05/18/17 at 06:30 Miscellaneous Information (Pending [facility] Order For Wound Care) This patient lara... PRN PRN XX WOUND CARE; Start 05/18/17 at 12:30 Lorazepam (Ativan) 0.5 mg Q4 PRN PO AGITATION Last administered on 05/28/17 11 :47; Admin Dose 0.5 MG; Start 05/21/17 at 04:00 Morphine Sulfate (morphine) 2 mg Q2H PRN IM PAIN Last administered on 18:24; Admin Dose 2 MG; Start 05/21/17 at 04:30 RADHA REYES MD May 28, 2017 12:24
[2017-05-28 14:59] VITALS: BP 119/82; RESP 18
[2017-05-28] MEDS: morphine 10 MG INJ IM PRN (15:27)
--- NOTE | 2017-05-28 16:04 | PN ---
Date/Time of Note Date/Time of Note DATE: 05/28/17 TIME: 16:01 Assessment/Plan VTE Prophylaxis VTE Prophylaxis Intervention: SCD's Lines/Catheters IV Catheter Type (from Nrsg): none Urinary Cath still in place: No Assessment/Plan Assessment/Plan 1. Lower extremity paraplegia with UE weakness - Most probably MS and Neurology on board. Recommendations appreciated - Patient continues to refuse all imaging and procedures. Requesting to have workup performed at [facility] 2. Psoriasis, scalp - continue topical steroids 3. Chest pain- resolved - most likely musculoskeletal in nature 4. PT/OT 5. Disposition - Patient refusing all medical treatment and is medically stable. No acute/ active issues at this time. Case management assistance greatly appreciated as we are trying to figure out where patients home is in order to discharge him back. If not may need to discharge to SNF and then patient can pursue workup at [facility]. Subjective 24 Hr Interval Summary Free Text/Dictation Patient continues to be uncooperative and refusing all treatment and interventions. When questioned about where he lives, he states [place] has alternative address. He does admit that he lives at home and has care givers come help him. Denies having any family nearby. Continually asks to be moved onto his right side. Exam/Review of Systems Vital Signs Vitals Vital Signs Date Time Temp Pulse Resp B/P Pulse Ox O2 Delivery O2 Flow Rate FiO2 05/28/17 14:59 98.3 72 18 119/82 96 05/28/17 09:00 Room Air Intake and Output 05/27/17 05/27/17 05/28/17 15:00 23:00 07:00 Intake Total 400 ml 1660 ml Balance 400 ml 1660 ml Exam General: resting comfortably. NAD. CVS: regular rate and rhythm. no murmurs Lungs: CTA b/l. no wheezes or crackles Abd: soft, NT, ND. no rebound or guarding Ext: lower extremity wasting , no swelling, cyanosis, clubbing Neuro: +3/5 RUE strength, Increased tone, with spasticity on the left. Lower extremities: No movements, increased tone bilaterally, severe paresthesias. Results Result Diagram: 05/27/17 1504 05/27/17 1504 Medications Medications Current Medications Aspirin (Aspirin) 81 mg DAILY PO Last administered on 05/28/17 09:26; Admin Dose 81 MG; Start 05/18/17 at 09:00 Nitroglycerin (Nitroglycerin (Sl Tab) 0.4 Mg) 1 tab Q5M PRN SL ANGINA; Start at 06:30 Heparin Sodium (Porcine) (Heparin (5000 Units/0.5 ml)) 5,000 unit BID SC Last administered on 05/28/17 09:42; Admin Dose 5,000 UNIT; Start 05/18/17 at 09:00 Metoprolol Tartrate (Lopressor) 25 mg BID PO Last administered on 05/28/17 09: 25; Admin Dose 25 MG; Start 05/18/17 at 09:00 Acetaminophen (Tylenol Tab) 650 mg Q6H PRN PO PAIN AND OR ELEVATED TEMP; Start 05/18/17 at 06:30 Morphine Sulfate (morphine) 2 mg Q4H PRN IV SEVERE PAIN LEVEL 7-10 Last administered on 05/25/17 11:01; Admin Dose 2 MG; Start 05/18/17 at 06:30 Miscellaneous Information (Pending [facility] Order For Wound Care) This patient lara... PRN PRN XX WOUND CARE; Start 05/18/17 at 12:30 Lorazepam (Ativan) 0.5 mg Q4 PRN PO AGITATION Last administered on 05/28/17 11 :47; Admin Dose 0.5 MG; Start 05/21/17 at 04:00 Morphine Sulfate (morphine) 2 mg Q2H PRN IM PAIN Last administered on 15:27; Admin Dose 2 MG; Start 05/21/17 at 04:30 SARAHY CABRERA MD May 28, 2017 16:04
[2017-05-28 20:00] VITALS: BP 121/83; RESP 18
[2017-05-29] MEDS: LORAZEPAM 1 MG TAB PO PRN ×2 (01:04→23:53)
[2017-05-29 02:18] VITALS: BP 119/89; RESP 20
[2017-05-29] MEDS: morphine 10 MG INJ IM PRN (06:09)
[2017-05-29] MEDS: ASPIRIN 81 MG TAB PO SCH (09:51)
[2017-05-29] MEDS: METOPROLOL 25 MG TAB PO SCH ×2 (09:54→22:13)
[2017-05-29 10:00] VITALS: BP 149/90; PULSE 100; RESP 18
[2017-05-29] MEDS: HEPARIN 5,000 UNIT/0.5 ML VIAL SC SCH ×2 (10:06→22:08)
--- NOTE | 2017-05-29 14:37 | PN ---
Date/Time of Note Date/Time of Note DATE: 05/29/17 TIME: 14:35 Assessment/Plan VTE Prophylaxis VTE Prophylaxis Intervention: SCD's Lines/Catheters IV Catheter Type (from Nrsg): none Urinary Cath still in place: No Assessment/Plan Chief Complaint/Hosp Course 1. Lower extremity paraplegia with UE weakness - Most probably MS and Neurology on board. Recommendations appreciated - Patient continues to refuse all imaging and procedures. Requesting to have workup performed at [facility] 2. Psoriasis, scalp - continue topical steroids 3. Chest pain- resolved - most likely musculoskeletal in nature 4. PT/OT 5. Disposition - Patient refusing all medical treatment and is medically stable. No acute/ active issues at this time. case management working on SNF transfer Problems: Subjective 24 Hr Interval Summary Free Text/Dictation patient very uncooperative and fixated on wanting to go to [facility] for workup. Patient refusing additional workup at this time. Exam/Review of Systems Vital Signs Vitals Vital Signs Date Time Temp Pulse Resp B/P Pulse Ox O2 Delivery O2 Flow Rate FiO2 05/29/17 10:00 98.3 100 18 149/90 Room Air 05/29/17 02:18 96 Intake and Output 05/28/17 05/28/17 05/29/17 15:00 23:00 07:00 Intake Total 1500 ml 560 ml Output Total 800 ml Balance 700 ml 560 ml Exam General: resting comfortably. NAD. CVS: regular rate and rhythm. no murmurs Lungs: CTA b/l. no wheezes or crackles Abd: soft, NT, ND. no rebound or guarding Ext: lower extremity wasting , no swelling, cyanosis, Neuro: +3/5 RUE strength, Increased tone, with spasticity on the left. Lower extremities: No movements, increased tone bilaterally, severe paresthesias Results Result Diagram: 05/27/17 1504 05/27/17 1504 Medications Medications Current Medications Aspirin (Aspirin) 81 mg DAILY PO Last administered on 05/29/17t 09:51; Admin Dose 81 MG; Start 05/18/17 at 09:00 Nitroglycerin (Nitroglycerin (Sl Tab) 0.4 Mg) 1 tab Q5M PRN SL ANGINA; Start at 06:30 Heparin Sodium (Porcine) (Heparin (5000 Units/0.5 ml)) 5,000 unit BID SC Last administered on 05/29/17 10:06; Admin Dose 5,000 UNIT; Start 05/18/17 at 09:00 Metoprolol Tartrate (Lopressor) 25 mg BID PO Last administered on 05/29/17 09: 54; Admin Dose 25 MG; Start 05/18/17 at 09:00 Acetaminophen (Tylenol Tab) 650 mg Q6H PRN PO PAIN AND OR ELEVATED TEMP; Start 05/18/17 at 06:30 Morphine Sulfate (morphine) 2 mg Q4H PRN IV SEVERE PAIN LEVEL 7-10 Last administered on 05/25/17 11:01; Admin Dose 2 MG; Start 05/18/17 at 06:30 [facility] This patient lara... PRN PRN XX WOUND CARE; Start 05/18/17 at 12:30 Lorazepam (Ativan) 0.5 mg Q4 PRN PO AGITATION Last administered on 05/29/17 01 :04; Admin Dose 0.5 MG; Start 05/21/17 at 04:00 Morphine Sulfate (morphine) 2 mg Q2H PRN IM PAIN Last administered on 06:09; Admin Dose 2 MG; Start 05/21/17 at 04:30 EDDIE WELCH May 29, 2017 14:37
[2017-05-29 15:35] VITALS: BP 122/84; PULSE 85; RESP 21
[2017-05-29] MEDS: morphine 2 MG INJ IV PRN ×2 (15:51→20:49)
--- NOTE | 2017-05-29 16:23 | RADRPT ---
PROCEDURE: XR Chest. CLINICAL INDICATION: Chest pain. TECHNIQUE: Single frontal view. COMPARISON: 05/18/2017. FINDINGS: There is mild atelectasis at the lung bases. The lungs are otherwise clear. The heart size is normal. There is calcification in the aorta consistent with atherosclerosis. There is no pleural effusion. There is no pneumothorax. There is a plate and screws in the cervical spine. IMPRESSION: 1. Mild atelectasis at the lung bases. 2. Atherosclerosis. 3. Prior cervical spine surgery. RPTAT: QQ .Akira Worthington MD, MD Date Time Electronically viewed and signed by .Akira Worthington MD, MD on 05/29/2017 16:23 .R/
[2017-05-29 16:56] LABS: BASOPHILS % 0.3 % (0.0-2.0); EOSINOPHILS # 0.2 10^3/ul (0.0-0.5); EOSINOPHILS % 1.4 % (0.0-7.0); HEMATOCRIT 42.6 % (42.0-52.0); HEMOGLOBIN 14.1 g/dl (14.0-18.0); LYMPHOCYTES # 2.7 10^3/ul (0.8-2.9); LYMPHOCYTES % 23.9 % (15.0-51.0); MEAN CORPUSCULAR HEMOGLOBIN 30.7 pg (29.0-33.0); MEAN CORPUSCULAR HGB CONC 33.1 g/dl (32.0-37.0); MEAN CORPUSCULAR VOLUME 92.8 fl (82.0-101.0); MEAN PLATELET VOLUME 9.7 fl (7.4-10.4); MONOCYTES % 9.1 % (0.0-11.0); NEUTROPHIL # 7.4 10^3/ul (1.6-7.5); NEUTROPHILS % 64.9 % (39.0-77.0); PLATELET COUNT 375 10^3/UL (140-415); RED BLOOD COUNT 4.59 10^6/ul (4.70-6.10); RED CELL DISTRIBUTION WIDTH 13.5 % (11.5-14.5); WHITE BLOOD COUNT 11.4 10^3/ul (4.8-10.8)
[2017-05-29 17:16] LABS: CREATININE 0.57 mg/dl (0.61-1.24)
[2017-05-29 20:00] VITALS: BP 132/83; RESP 20
[2017-05-30 02:00] VITALS: BP 122/80; RESP 20
[2017-05-30] MEDS: morphine 2 MG INJ IV PRN ×3 (02:30→21:16)
[2017-05-30] MEDS: LORAZEPAM 1 MG TAB PO PRN ×2 (05:40→23:12)
[2017-05-30 07:54] VITALS: BP 113/70; RESP 18
[2017-05-30] MEDS: ASPIRIN 81 MG TAB PO SCH (09:34)
[2017-05-30] MEDS: METOPROLOL 25 MG TAB PO SCH ×2 (09:34→21:15)
[2017-05-30] MEDS: HEPARIN 5,000 UNIT/0.5 ML VIAL SC SCH ×2 (10:43→21:00)
[2017-05-30 14:00] VITALS: BP 102/54; RESP 18
[2017-05-30] MEDS ORDERED: POLYETHYLENE GLYCOL 17 GM PACKET PO PRN (14:30)
--- NOTE | 2017-05-30 15:46 | PN ---
Date/Time of Note Date/Time of Note DATE: 05/30/17 TIME: 15:43 Assessment/Plan VTE Prophylaxis VTE Prophylaxis Intervention: heparin Lines/Catheters IV [facility] Type [facility]from [facility] Sal[facility] Lock Urinary Cath still in place: No Assessment/Plan Chief Complaint/Hosp Course 1. Lower extremity paraplegia with UE weakness - Most probably MS and Neurology on board. Recommendations appreciated - now willing to undergo MRI with contrast, now reordered - still unwilling to undergo biopsy -neuro notified, will review MRI once completed 2. Psoriasis, scalp - continue topical steroids while in hospital 3. Chest pain- resolved - most likely musculoskeletal in nature -had episode of chest pain again on 05/29/17, workup negative 4. PT/OT 5. Disposition - MRI pending, but likely still SNF transfer afterwards. Problems: Subjective 24 Hr Interval Summary Free Text/Dictation complains of not finding the cure to his ailment. States willing to now do MRI, but not lumbar puncture. Exam/Review of Systems Vital Signs Vitals Vital Signs Date Time Temp Pulse Resp B/P Pulse Ox O2 Delivery O2 Flow Rate FiO2 05/30/17 14:00 98.2 74 18 102/54 95 05/29/17 15:35 Room Air Intake and Output 05/29/17 05/29/17 05/30/17 15:00 23:00 07:00 Intake Total 1220 ml 520 ml Balance 1220 ml 520 ml Exam General: resting comfortably. NAD. intermittent chest pain CVS: regular rate and rhythm. no murmurs Lungs: CTA b/l. no wheezes or crackles Abd: soft, NT, ND. no rebound or guarding Ext: lower extremity wasting , no swelling, cyanosis, Neuro: +3/5 RUE strength, Increased tone, with spasticity on the left. Lower extremities: No movements, increased tone bilaterally, severe paresthesias Results Result Diagram: 05/29/17 1643 05/29/17 1643 Results 24 hrs Laboratory Tests Test 05/29/17 16:43 05/30/17 00:46 05/30/17 06:17 White Blood Count 11.4 H Red Blood Count 4.59 L Hemoglobin 14.1 Hematocrit 42.6 Mean Corpuscular Volume 92.8 Mean Corpuscular Hemoglobin 30.7 Mean Corpuscular Hemoglobin Concent 33.1 Red Cell Distribution Width 13.5 Platelet Count 375 Mean Platelet Volume 9.7 Neutrophils % 64.9 Lymphocytes % 23.9 Monocytes % 9.1 Eosinophils % 1.4 Basophils % 0.3 Nucleated Red Blood Cells % 0.0 Neutrophils # 7.4 Lymphocytes # 2.7 Monocytes # 1.0 H Eosinophils # 0.2 Basophils # 0.0 Nucleated Red Blood Cells # 0.0 Sodium Level 137 Potassium Level 4.0 Chloride Level 106 Carbon Dioxide Level 27 Anion Gap 8 Blood Urea Nitrogen 15 Creatinine 0.57 L Glucose Level 120 Calcium Level 9.0 Troponin I < 0.012 < 0.012 < 0.012 Medications Medications Current Medications Aspirin (Aspirin) 81 mg DAILY PO Last administered on 05/30/17 09:34; Admin Dose 81 MG; Start 05/18/17 at 09:00 Nitroglycerin (Nitroglycerin (Sl Tab) 0.4 Mg) 1 tab Q5M PRN SL ANGINA; Start at 06:30 Heparin Sodium (Porcine) (Heparin (5000 Units/0.5 ml)) 5,000 unit BID SC Last administered on 05/30/17 10:43; Admin Dose 5,000 UNIT; Start 05/18/17 at 09:00 Metoprolol Tartrate (Lopressor) 25 mg BID PO Last administered on 05/30/17 09: 34; Admin Dose 25 MG; Start 05/18/17 at 09:00 Acetaminophen (Tylenol Tab) 650 mg Q6H PRN PO PAIN AND OR ELEVATED TEMP; Start 05/18/17 at 06:30 Morphine Sulfate (morphine) 2 mg Q4H PRN IV SEVERE PAIN LEVEL 7-10 Last administered on 05/30/17 13:21; Admin Dose 2 MG; Start 05/18/17 at 06:30 Miscellaneous Information (Pending [facility] Order For Wound Care) This patient lara... PRN PRN XX WOUND CARE; Start 05/18/17 at 12:30 Lorazepam (Ativan) 0.5 mg Q4 PRN PO AGITATION Last administered on 05/30/17 05 :40; Admin Dose 0.5 MG; Start 05/21/17 at 04:00 Morphine Sulfate (morphine) 2 mg Q2H PRN IM PAIN Last administered on 06:09; Admin Dose 2 MG; Start 05/21/17 at 04:30 Polyethylene Glycol (Miralax) 17 gm DAILY PRN PO CONSTIPATION Last administered on 05/30/17t 15:11; Admin Dose 17 GM; Start 05/30/17 at 14:30 EDDIE WELCH May 30, 2017 15:46
[2017-05-30] MEDS ORDERED: NA PHOSPHATE/BIPHOS 133 ML ENEMA PR ONE (18:00)
[2017-05-30 20:00] VITALS: BP 137/95; RESP 20
[2017-05-30] MEDS: DOCUSATE SODIUM 100 MG CAP PO SCH (21:15)
[2017-05-30] MEDS: SENNA TAB PO SCH (21:15)
[2017-05-31 02:00] VITALS: BP 132/94; RESP 20
[2017-05-31] MEDS: morphine 2 MG INJ IV PRN (04:02)
[2017-05-31 08:02] VITALS: BP 133/85; RESP 18
[2017-05-31] MEDS: DOCUSATE SODIUM 100 MG CAP PO SCH ×2 (09:26→22:11)
[2017-05-31] MEDS: ASPIRIN 81 MG TAB PO SCH (09:27)
[2017-05-31] MEDS: METOPROLOL 25 MG TAB PO SCH ×2 (09:31→22:12)
[2017-05-31] MEDS: SENNA TAB PO SCH ×2 (09:33→22:11)
[2017-05-31] MEDS: HEPARIN 5,000 UNIT/0.5 ML VIAL SC SCH ×2 (09:44→22:18)
--- NOTE | 2017-05-31 14:08 | RADRPT ---
Vent Rate: 81 bpm RR Interval: 0 msec NC Interval: 148 msec QRS Duration: 70 msec QT Interval: 358 msec QTC Interval: 415 msec P-R-T [place]: 71 - 44 - 58 degrees Normal sinus rhythm Normal ECG Electronically Signed By: Meet Roman [id number]
[2017-05-31 14:16] VITALS: BP 143/77; RESP 18
--- NOTE | 2017-05-31 15:45 | PN ---
Date/Time of Note Date/Time of Note DATE: 05/31/17 TIME: 15:42 Assessment/Plan VTE Prophylaxis VTE Prophylaxis Intervention: SCD's Lines/Catheters IV Catheter Type (from Nrs): Saline Lock Urinary Cath still in place: No Assessment/Plan Chief Complaint/Hosp Course 1. Lower extremity paraplegia with UE weakness - Most probably MS and Neurology on board. Recommendations appreciated - now willing to undergo MRI with contrast, now reordered - still unwilling to undergo lumbar puncture -neuro notified, will review MRI once completed 2. Psoriasis, scalp - continue topical steroids while in hospital as needed 3. Chest pain- resolved - most likely musculoskeletal in nature -had episode of chest pain again on 05/29/17, workup negative 4. PT/OT 5. Disposition - MRI pending, but likely still SNF transfer afterwards. Problems: Subjective 24 Hr Interval Summary Free Text/Dictation Upon entering room, patient is sound asleep and takes sound and touch to wake up patient. Patient instantly states he is uncomfortable and needs water. Patient has multiple complaints. Exam/Review of Systems Vital Signs Vitals Vital Signs Date Time Temp Pulse Resp B/P Pulse Ox O2 Delivery O2 Flow Rate FiO2 05/31/17 14:16 98.0 70 18 143/77 92 05/29/17 15:35 Room Air Intake and Output 05/30/17 05/30/17 05/31/17 15:00 23:00 07:00 Intake Total 150 ml 50 ml Balance 150 ml 50 ml Exam General: resting comfortably. NAD. intermittent chest pain CVS: regular rate and rhythm. no murmurs Lungs: CTA b/l. no wheezes or crackles Abd: soft, NT, ND. no rebound or guarding Ext: lower extremity wasting , no swelling, cyanosis, Neuro: +3/5 RUE strength, Increased tone, with spasticity on the left. Lower extremities: No movements, increased tone bilaterally, severe paresthesias Results Result Diagram: 05/29/17 1643 05/29/17 1643 Medications Medications Current Medications Aspirin (Aspirin) 81 mg DAILY PO Last administered on 05/31/17t 09:27; Admin Dose 81 MG; Start 05/18/17 at 09:00 Nitroglycerin (Nitroglycerin (Sl Tab) 0.4 Mg) 1 tab Q5M PRN SL ANGINA; Start at 06:30 Heparin Sodium (Porcine) (Heparin (5000 Units/0.5 ml)) 5,000 unit BID SC Last administered on 05/31/17 09:44; Admin Dose 5,000 UNIT; Start 05/18/17 at 09:00 Metoprolol Tartrate (Lopressor) 25 mg BID PO Last administered on 05/31/17 09: 31; Admin Dose 25 MG; Start 05/18/17 at 09:00 Acetaminophen (Tylenol Tab) 650 mg Q6H PRN PO PAIN AND OR ELEVATED TEMP; Start 05/18/17 at 06:30 Morphine Sulfate (morphine) 2 mg Q4H PRN IV SEVERE PAIN LEVEL 7-10 Last administered on 05/31/17 04:02; Admin Dose 2 MG; Start 05/18/17 at 06:30 Miscellaneous Information (Pending [facility] Order For Wound Care) This patient lara... PRN PRN XX WOUND CARE; Start 05/18/17 at 12:30 Lorazepam (Ativan) 0.5 mg Q4 PRN PO AGITATION Last administered on 05/30/17 23 :12; Admin Dose 0.5 MG; Start 05/21/17 at 04:00 Morphine Sulfate (morphine) 2 mg Q2H PRN IM PAIN Last administered on 06:09; Admin Dose 2 MG; Start 05/21/17 at 04:30 Polyethylene Glycol (Miralax) 17 gm DAILY PRN PO CONSTIPATION Last administered on 05/30/17 15:11; Admin Dose 17 GM; Start 05/30/17 at 14:30 Senna (Senokot) 2 tab BID PO Last administered on 05/31/17 09:33; Admin Dose 2 TAB; Start 05/30/17 at 21:00 Docusate Sodium (Colace) 100 mg BID PO Last administered on 05/31/17 09:26; Admin Dose 100 MG; Start 05/30/17 at 21:00 EDDIE WELCH May 31, 2017 15:45
--- NOTE | 2017-05-31 18:07 | RADRPT ---
PROCEDURE: MR Brain with and without contrast. CLINICAL INDICATION: Multiple sclerosis. TECHNIQUE: Multiplanar multisequence MRI of the brain was performed before and after the administra tion of 10 cc of Magnevist. COMPARISON: MRI of the brain with and without contrast from May 20, 2017. FINDINGS: Evaluation is mildly limited due to motion degradation. There is minimal generalized cerebral volume loss. There is minimal cerebellar volume loss. 1There are moderate to extensive ovoid periventricular and subcortical T2 hyperintensities predomin ately within the callososeptal interface suggesting demyelination. There are a few stable left midb rain as well as pontine lesions and left greater than right middle cerebral peduncle. There are a fe w stable left cerebellar lesions. There is mild volume loss of the corpus callosum. There is no abno rmal enhancement to suggest active demyelination. There is no acute infarction. There is no intracranial hemorrhage or extra-axial fluid collection. There is no mass effect. There is no midline shift. The normal intracranial, intravascular flow voids are preserved. The orbits are grossly unremarkable. The visualized paranasal sinuses are well-aerated. There is no destructive osseous lesion. IMPRESSION: Evaluation is mildly limited due to motion degradation. No significant change. 1. Moderate to extensive periventricular and subcortical as well as midbrain and cerebellar T2 hyper intensities suggesting demyelination in this patient with multiple sclerosis. There is no abnormal enhancement to suggest active demyelination. 2. Minimal cerebral and cerebellar volume loss. 3. Mild corpus callosal volume loss. Further findings as detailed above. RPTAT: PP .Ever Perez MD, Date Time Electronically viewed and signed by .Ever Perez MD, on 05/31/2017 18:07 .F/
[2017-05-31 21:45] VITALS: BP 151/93; RESP 20
[2017-06-01 02:00] VITALS: BP 131/90; RESP 20
[2017-06-01] MEDS: morphine 2 MG INJ IV PRN ×2 (02:07→11:31)
[2017-06-01 07:49] VITALS: BP 142/93; RESP 18
[2017-06-01] MEDS: DOCUSATE SODIUM 100 MG CAP PO SCH ×2 (09:36→21:50)
[2017-06-01] MEDS: SENNA TAB PO SCH ×2 (09:36→21:51)
[2017-06-01] MEDS: ASPIRIN 81 MG TAB PO SCH (09:36)
[2017-06-01] MEDS: HEPARIN 5,000 UNIT/0.5 ML VIAL SC SCH ×2 (09:41→21:56)
[2017-06-01] MEDS: METOPROLOL 25 MG TAB PO SCH ×2 (10:54→21:53)
[2017-06-01] MEDS ORDERED: LORAZEPAM 2 MG INJ IV PRN (13:00)
--- NOTE | 2017-06-01 14:28 | DS ---
Date/Time of Note Date/Time of Note DATE: 06/01/17 TIME: 14:25 Discharge Summary Admission/Discharge Info Admit Date/Time May 18, 2017 at 03:32 Discharge Date/Time Patient Condition: Stable Hx of Present Illness This is a 52-year-old paraplegic male who presented from [facility] for evaluation of chest pain. He said he has been paraplegic for the past several months as a result of "Lyme infection". Chest pain is slightly left- sided and pressure-like and has been going on for the past 4 days. He reported associated shortness of breath. Denied history of chest pain. As far as Lyme disease is concerned, he said he was treated with Rocephin for a month, but when he got better he stopped taking the antibiotic prematurely. He thinks that is what resulted in the paraplegia. He said if Rocephin is resumed, he should be able to walk again. He is asking for a placement of a PICC line and initiation of Rocephin. . Hospital Course Discharge diagnosis Paraplegia, unknown cause Debility Muscle weakness, chronic Demyelinization disease, unknown type, questionable MS Psoriasis Chest pain, resolved Patient is a 52-year-old paraplegic male who presented originally from [facility] for evaluation of chest pain. Upon initial evaluation and a extended stay in this admission patient was offered multiple times intervention , however patient became increasingly difficult and would only pick and choose what he wanted or medical procedure. Patient's condition has not changed since initial intervention approximately 14 days ago. Patient originally stated that he believes Lyme disease caused his paraplegia and wanted Rocephin to be reinitiated. Neurology was consulted after preliminary testing and continuous recommendations from multiple providers, patient agreed on MRI without contrast in order to evaluate brain. MRI brain without contrast showed demyelinization and neurology began to consider multiple sclerosis as etiology of patient's paraplegia. It should be noted that neurology does not think Lyme is the cause of his demyelinization issue. When offered further testing which included MRI of the brain, cervical, thoracic spine with contrast with lumbar puncture to diagnose multiple sclerosis, patient active denied for over 7 days. During this time patient also stopped high-dose corticosteroids as he refused treatment. Patient stated that he wanted to be transferred to [facility], however this was complicated by the fact that patient really is refusing all care and labs. When it was brought to the attention the patient will be transferred to a custodial facility, patient had an acute episode of chest pain again, which we did not result in any acute IN after labs, EKG, and chest x-ray were done. Patient has not been helpful with case management or physician, patient states that he does not remember where he was staying before , patient also states that he does not have family, however patient is exhibiting some symptoms of malingering. Patient then stated that he was willing to get MRI with contrast, approximately 14 days after admission. Neurology stated that if there was any acute issues they would intervene at that time. Patient was able to tolerate MRI with contrast of the brain which did not show any acute lesions only chronic lesions. However when patient was given opportunity to get cervical and thoracic MRI with contrast done, patient became too agitated even with sedation and MRI could not be completed. It was suggested to the patient that he follow-up and received MRI with contrast in the outpatient setting. Patient has been stable this entire encounter and it appears patient's original complaint of chest pain is musculoskeletal nature, as workup for ACS was negative on multiple occasions. Home Meds Unable to Obtain Active Prescriptions or Reported Meds Primary Care Provider Not On Staff Doctor Time spent on discharge: > 30 minutes EDDIE WELCH Jun 01, 2017 14:28
[2017-06-01 15:36] VITALS: BP 117/76; RESP 18
[2017-06-01] MEDS ORDERED: POLY17PO6 PO (15:40)
[2017-06-01] MEDS ORDERED: morphine IV (15:40)
[2017-06-01] MEDS ORDERED: ASPI81TA3 PO (15:40)
[2017-06-01] MEDS ORDERED: METO-448 PO (15:40)
--- NOTE | 2017-06-01 17:22 | RADRPT ---
PROCEDURE: MR Thoracic Spine noncontrast. CLINICAL INDICATION: Back pain. TECHNIQUE: Multiplanar multisequence noncontrast MRI of the thoracic spine performed. Postcontrast images were not performed due to patient's inability to complete the examination. COMPARISON: There are no similar studies submitted for comparison. FINDINGS: Evaluation is moderately limited due to motion degradation. There is mild accentuation of the normal thoracic kyphosis. The vertebral body heights are maintained. There is normal alignment. There is no destructive osseous lesion.There is no abnormal bone marrow edema. There is multilevel disc desiccation with mild to moderate disc space narrowing. The spinal cord is normal is signal. 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 There are multilevel mild disc bulges with mild bilateral facet arthropathy without spinal canal or bilateral foraminal stenosis. The paraspinal musculature are within normal limits. IMPRESSION: Evaluation is moderately limited due to motion degradation. Postcontrast images were not performed d ue to patient's inability to complete examination. 1. Mild to moderate degenerative changes without spinal canal or bilateral foraminal stenosis. 2. 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 3. No acute compression fracture or abnormal bone marrow edema. Further findings as detailed above. RPTAT: PP .Ever Perez MD, MD Date Time Electronically viewed and signed by .Ever Perez MD, on 06/01/2017 17:22 .F/
--- NOTE | 2017-06-01 17:25 | RADRPT ---
PROCEDURE: MR Cervical Spine noncontrast. CLINICAL INDICATION: Postoperative. TECHNIQUE: Multiplanar multisequence noncontrast MRI of the cervical spine was performed. Postcontr ast images were performed due to patient's inability to complete the examination. COMPARISON: There are no similar studies submitted for comparison. FINDINGS: Evaluation is moderate limited due to motion degradation. The patient is status post anterior cervical discectomy and fusion from the C3 to the C6 levels caus ing susceptibility artifact limiting evaluation. There is normal cervical lordosis. The vertebral body heights are maintained. There is normal alignment. There is no destructive osseous lesion. There is no abnormal bone marrow edema. There is disk desiccation from C2-C3 to C6-C7. The spinal cord is normal in caliber. The spinal cord is normal in signal. C2-C3 : There is moderate disc space narrowing. There is a 2 mm circumferential disc osteophyte comp maxx with mild to moderate spinal canal stenosis. There is moderate bilateral facet arthropathy and b ilateral uncovertebral hypertrophy with moderate bilateral foraminal stenosis. C3-C4 : Postoperative changes are noted with minimal posterior osteophytic spurring with mild spinal canal stenosis. There is mild bilateral facet arthropathy and bilateral uncovertebral hypertrophy c ausing probable severe left with moderate to severe right foraminal stenosis. This likely affects th e exiting bilateral C4 nerve roots. Evaluation is limited due to motion degradation. C4-C5 : Postoperative changes are noted with minimal posterior osteophytic spurring with mild spinal canal stenosis. There is severe left and moderate facet arthropathy and bilateral uncovertebral hyp ertrophy causing probable moderate to severe bilateral foraminal stenosis. This likely affects the e xiting bilateral C5 nerve roots. C5-C6 : Postoperative changes are noted with minimal posterior osteophytic spurring with moderate sp inal canal stenosis. There is moderate bilateral facet arthropathy and bilateral uncovertebral hyper trophy causing severe bilateral foraminal stenosis. This affects the exiting bilateral C6 nerve root s. C6-C7 : There is a 2 mm circumferential disc osteophyte complex without spinal canal stenosis. There is moderate bilateral facet arthropathy and bilateral uncovertebral hypertrophy causing moderate bi lateral foraminal stenosis. C7-T1 : There is no disc herniation, spinal canal, or foraminal stenosis. There is moderate bilater al facet arthropathy. The paravertebral musculature are within normal limits. IMPRESSION: Evaluation is moderate limited due to motion degradation. Postcontrast images were not performed due to patient's inability to complete examination. 1. Status post anterior cervical discectomy and fusion from the C3 to the C6 levels causing suscept ibility artifact limiting evaluation. 2. Multilevel bilateral foraminal stenosis affecting the exiting bilateral C4, bilateral C5, and shavonne ateral C6 nerve roots as detailed above. 3. Reversal of the cervical lordosis suggesting muscle spasm and/or degenerative changes. 4. No abnormal bone marrow edema. Further findings as detailed above. RPTAT: PP .Ever Perez MD, MD Date Time Electronically viewed and signed by .Ever Perez MD, MD on 06/01/2017 17:24 .F/
--- NOTE | 2017-06-01 18:44 | QN ---
Documentation Comment DC held after MRI results. Pending neurosurgery evaluation. EDDIE WELCH Jun 01, 2017 18:44
--- NOTE | 2017-06-01 18:54 | PN ---
Date/Time of Note Date/Time of Note DATE: 06/01/17 TIME: 18:50 Assessment/Plan VTE Prophylaxis VTE Prophylaxis Intervention: SCD's Lines/Catheters IV Catheter Type (from Nrs): Saline Lock Urinary Cath still in place: No Assessment/Plan Chief Complaint/Hosp Course 1. Lower extremity paraplegia with UE weakness - Most probably MS and Neurology on board. 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 -Neurosurgery has been consulted for evaluation 2. Psoriasis, scalp - continue topical steroids while in hospital as needed 3. Chest pain- resolved - most likely musculoskeletal in nature -had episode of chest pain again on 05/29/17, workup negative 4. PT/OT 5. Disposition -Pending neurosurgery recommendations. Problems: Subjective 24 Hr Interval Summary Free Text/Dictation has multiple complaints. mainly about being uncomfortable. agrees for MRI with ativan. Exam/Review of Systems Vital Signs Vitals Vital Signs Date Time Temp Pulse Resp B/P Pulse Ox O2 Delivery O2 Flow Rate FiO2 06/01/17 15:36 98.6 69 18 117/76 96 05/29/17 15:35 Room Air Intake and Output 05/31/17 05/31/17 06/01/17 15:00 23:00 07:00 Intake Total 560 ml 960 ml 540 ml Balance 560 ml 960 ml 540 ml Exam General: resting comfortably. NAD. intermittent chest pain CVS: regular rate and rhythm. no murmurs Lungs: CTA b/l. no wheezes or crackles Abd: soft, NT, ND. no rebound or guarding Ext: lower extremity wasting , no swelling, cyanosis, Neuro: +3/5 RUE strength, Increased tone, with spasticity on the left. Lower extremities: No movements, increased tone bilaterally, severe paresthesias Results Result Diagram: 05/29/17 1643 05/29/17 1643 Medications Medications Current Medications Aspirin (Aspirin) 81 mg DAILY PO Last administered on 06/01/17t 09:36; Admin Dose 81 MG; Start 05/18/17 at 09:00 Nitroglycerin (Nitroglycerin (Sl Tab) 0.4 Mg) 1 tab Q5M PRN SL ANGINA; Start at 06:30 Heparin Sodium (Porcine) (Heparin (5000 Units/0.5 ml)) 5,000 unit BID SC Last administered on 06/01/17 09:41; Admin Dose 5,000 UNIT; Start 05/18/17 at 09:00 Metoprolol Tartrate (Lopressor) 25 mg BID PO Last administered on 06/01/17 10: 54; Admin Dose 25 MG; Start 05/18/17 at 09:00 Acetaminophen (Tylenol Tab) 650 mg Q6H PRN PO PAIN AND OR ELEVATED TEMP; Start 05/18/17 at 06:30 Morphine Sulfate (morphine) 2 mg Q4H PRN IV SEVERE PAIN LEVEL 7-10 Last administered on 06/01/17 11:31; Admin Dose 2 MG; Start 05/18/17 at 06:30 Misc[facility] ([facility]) This patient lara... PRN PRN XX WOUND CARE; Start 05/18/17 at 12:30 Lorazepam (Ativan) 0.5 mg Q4 PRN PO AGITATION Last administered on 05/30/17 23 :12; Admin Dose 0.5 MG; Start 05/21/17 at 04:00 Morphine Sulfate (morphine) 2 mg Q2H PRN IM PAIN Last administered on 06:09; Admin Dose 2 MG; Start 05/21/17 at 04:30 Polyethylene Glycol (Miralax) 17 gm DAILY PRN PO CONSTIPATION Last administered on 05/30/17 15:11; Admin Dose 17 GM; Start 05/30/17 at 14:30 Senna (Senokot) 2 tab BID PO Last administered on 06/01/17 09:36; Admin Dose 2 TAB; Start 05/30/17 at 21:00 Docusate Sodium (Colace) 100 mg BID PO Last administered on 06/01/17 09:36; Admin Dose 100 MG; Start 05/30/17 at 21:00 Lorazepam (Ativan) 1 mg ONCE PRN IV for MRI Last administered on 06/01/17 13:15 ; Admin Dose 1 MG; Start 06/01/17 at 13:00; Stop 06/02/17 at 12:59 EDDIE WELCH Jun 01, 2017 18:54
[2017-06-01 20:16] VITALS: BP 131/85; RESP 18
[2017-06-01] MEDS: LORAZEPAM 1 MG TAB PO PRN (21:53)
[2017-06-02 01:56] VITALS: BP 132/89; RESP 20
[2017-06-02] MEDS: morphine 2 MG INJ IV PRN ×2 (02:15→20:45)
[2017-06-02 08:04] VITALS: BP 156/86; RESP 18
[2017-06-02] MEDS: SENNA TAB PO SCH ×2 (09:37→20:40)
[2017-06-02] MEDS: DOCUSATE SODIUM 100 MG CAP PO SCH ×2 (09:40→20:39)
[2017-06-02] MEDS: METOPROLOL 25 MG TAB PO SCH ×2 (09:40→20:40)
[2017-06-02] MEDS: ASPIRIN 81 MG TAB PO SCH (09:40)
[2017-06-02] MEDS: HEPARIN 5,000 UNIT/0.5 ML VIAL SC SCH ×2 (09:52→21:32)
[2017-06-02 14:18] VITALS: BP 141/93; RESP 18
--- NOTE | 2017-06-02 16:59 | PN ---
Date/Time of Note Date/Time of Note DATE: 06/02/17 TIME: 16:57 Assessment/Plan VTE Prophylaxis VTE Prophylaxis Intervention: SCD's Lines/Catheters IV Catheter Type (from Nrs): Saline Lock Urinary Cath still in place: No Assessment/Plan Chief Complaint/Hosp Course 1. Lower extremity paraplegia with UE weakness - Most probably MS and Neurology on board. 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 -Neurosurgery has been consulted for evaluation, pending 2. Psoriasis, scalp - continue topical steroids while in hospital as needed 3. Chest pain- resolved - most likely musculoskeletal in nature -had episode of chest pain again on 05/29/17, workup negative 4. PT/OT 5. Disposition -Pending neurosurgery recommendations. Problems: Subjective 24 Hr Interval Summary Free Text/Dictation patient feels like we keep guessing at the diagnosis. no other acute complaints Exam/Review of Systems Vital Signs Vitals Vital Signs Date Time Temp Pulse Resp B/P Pulse Ox O2 Delivery O2 Flow Rate FiO2 06/02/17 14:18 98.7 67 18 141/93 95 05/29/17 15:35 Room Air Intake and Output 06/01/17 06/01/17 06/02/17 15:00 23:00 07:00 Intake Total 1682 ml Balance 1682 ml Exam General: resting comfortably. NAD. intermittent chest pain CVS: regular rate and rhythm. no murmurs Lungs: CTA b/l. no wheezes or crackles Abd: soft, NT, ND. no rebound or guarding Ext: lower extremity wasting , no swelling, cyanosis, Neuro: +3/5 RUE strength, Increased tone, with spasticity on the left. Lower extremities: No movements, increased tone bilaterally, severe paresthesias Results Result Diagram: 05/29/17 1643 05/29/17 1643 Medications Medications Current Medications Aspirin (Aspirin) 81 mg DAILY PO Last administered on 06/02/17t 09:40; Admin Dose 81 MG; Start 05/18/17 at 09:00 Nitroglycerin (Nitroglycerin (Sl Tab) 0.4 Mg) 1 tab Q5M PRN SL ANGINA; Start at 06:30 Heparin Sodium (Porcine) (Heparin (5000 Units/0.5 ml)) 5,000 unit BID SC Last administered on 06/02/17 09:52; Admin Dose 5,000 UNIT; Start 05/18/17 at 09:00 Metoprolol Tartrate (Lopressor) 25 mg BID PO Last administered on 06/02/17 09: 40; Admin Dose 25 MG; Start 05/18/17 at 09:00 Acetaminophen (Tylenol Tab) 650 mg Q6H PRN PO PAIN AND OR ELEVATED TEMP; Start 05/18/17 at 06:30 Morphine Sulfate (morphine) 2 mg Q4H PRN IV SEVERE PAIN LEVEL 7-10 Last administered on 06/02/17 02:15; Admin Dose 2 MG; Start 05/18/17 at 06:30 Miscellaneous Information (Pending [facility]) This patient lara... PRN PRN XX WOUND CARE; Start 05/18/17 at 12:30 Lorazepam (Ativan) 0.5 mg Q4 PRN PO AGITATION Last administered on 06/01/17 21 :53; Admin Dose 0.5 MG; Start 05/21/17 at 04:00 Morphine Sulfate (morphine) 2 mg Q2H PRN IM PAIN Last administered on 06:09; Admin Dose 2 MG; Start 05/21/17 at 04:30 Polyethylene Glycol (Miralax) 17 gm DAILY PRN PO CONSTIPATION Last administered on 05/30/17 15:11; Admin Dose 17 GM; Start 05/30/17 at 14:30 Senna (Senokot) 2 tab BID PO Last administered on 06/02/17 09:37; Admin Dose 2 TAB; Start 05/30/17 at 21:00 Docusate Sodium (Colace) 100 mg BID PO Last administered on 06/02/17 09:40; Admin Dose 100 MG; Start 05/30/17 at 21:00 EDDIE WELCH Jun 02, 2017 16:58
[2017-06-02 20:00] VITALS: BP 135/91; RESP 19
[2017-06-02] MEDS: LORAZEPAM 1 MG TAB PO PRN (20:41)
--- NOTE | 2017-06-02 21:51 | CONS ---
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 It is not the cause of the patient's symptomatology in any event. Given his profoundly abnormal MRI of the brain, I would think that a demyelinating process or other systemic disease process is the issue. There is in any event no indication for neurosurgical intervention of any kind. Consultation Date/Type/Reason Admit Date/Time May 18, 2017 at 03:32 Date of Consultation: Jun 02, 2017 Type of Consultation: neurosurgery Reason for Consultation syringohydromyelia Hx of Present Illness 52 year old male with history of progressive neurologic deficits including paraplegia and bulbar complaints, per patient starting 6-7 months ago after dx of Lyme disease. MRI of the brain shows multiple T2 high signal areas in the cerebellar peduncles and periventricular white matter. He evidecntly has been non-cooperative with the work up for MS and has refused LP, etc. MRI of the thoracic cord was performed and this demonstrates a small (`2mm) dilated central canal (hydromyelia). There is no evidence of any compressive cord lesion. Constitutional: no complaints Gastrointestinal: other (Hungry) Psychological: confusion, no complaints Social History Smoking Status: Unknown if ever smoked Exam/Review of Systems Vital Signs Vitals Vital Signs Date Time Temp Pulse Resp B/P Pulse Ox O2 Delivery O2 Flow Rate FiO2 06/02/17 14:18 98.7 67 18 141/93 95 05/29/17 15:35 Room Air Intake and Output 06/01/17 06/01/17 06/02/17 15:00 23:00 07:00 Intake Total 1682 ml Balance 1682 ml Exam The patient is awake and alert. He is oriented. His speech is fluent but labored and he is hypophonic. He has bilateral upper extremity weakness in addition to paraplegia. His gazxe is dysconjugate but he denies diplopia. Pupils are equal. Results Result Diagram: 05/29/17 1643 05/29/17 1643 Medications Medications Current Medications Aspirin (Aspirin) 81 mg DAILY PO Last administered on 06/02/17t 09:40; Admin Dose 81 MG; Start 05/18/17 at 09:00 Nitroglycerin (Nitroglycerin (Sl Tab) 0.4 Mg) 1 tab Q5M PRN SL ANGINA; Start at 06:30 Heparin Sodium (Porcine) (Heparin (5000 Units/0.5 ml)) 5,000 unit BID SC Last administered on 06/02/17 21:32; Admin Dose 5,000 UNIT; Start 05/18/17 at 09:00 Metoprolol Tartrate (Lopressor) 25 mg BID PO Last administered on 06/02/17 20: 40; Admin Dose 25 MG; Start 05/18/17 at 09:00 Acetaminophen (Tylenol Tab) 650 mg Q6H PRN PO PAIN AND OR ELEVATED TEMP; Start 05/18/17 at 06:30 Morphine Sulfate (morphine) 2 mg Q4H PRN IV SEVERE PAIN LEVEL 7-10 Last administered on 06/02/17 20:45; Admin Dose 2 MG; Start 05/18/17 at 06:30 Miscellaneous Information (Pending [facility] Order For Wound Care) This patient lara... PRN PRN XX WOUND CARE; Start 05/18/17 at 12:30 Lorazepam (Ativan) 0.5 mg Q4 PRN PO AGITATION Last administered on 06/02/17 20 :41; Admin Dose 0.5 MG; Start 05/21/17 at 04:00 Morphine Sulfate (morphine) 2 mg Q2H PRN IM PAIN Last administered on 06:09; Admin Dose 2 MG; Start 05/21/17 at 04:30 Polyethylene Glycol (Miralax) 17 gm DAILY PRN PO CONSTIPATION Last administered on 05/30/17 15:11; Admin Dose 17 GM; Start 05/30/17 at 14:30 Senna (Senokot) 2 tab BID PO Last administered on 06/02/17 20:40; Admin Dose 2 TAB; Start 05/30/17 at 21:00 Docusate Sodium (Colace) 100 mg BID PO Last administered on 06/02/17 20:39; Admin Dose 100 MG; Start 05/30/17 at 21:00 TAMERA POLLARD MD Jun 02, 2017 21:51
[2017-06-03] MEDS: LORAZEPAM 1 MG TAB PO PRN (01:45)
[2017-06-03 02:22] VITALS: BP 131/93; RESP 20
[2017-06-03 07:38] VITALS: BP 142/101; RESP 18
[2017-06-03] MEDS: DOCUSATE SODIUM 100 MG CAP PO SCH ×2 (08:54→20:23)
[2017-06-03] MEDS: SENNA TAB PO SCH ×2 (08:54→20:23)
[2017-06-03] MEDS: ASPIRIN 81 MG TAB PO SCH (08:54)
[2017-06-03] MEDS: METOPROLOL 25 MG TAB PO SCH ×2 (08:55→20:24)
[2017-06-03] MEDS: HEPARIN 5,000 UNIT/0.5 ML VIAL SC SCH ×2 (09:35→20:32)
[2017-06-03 14:27] VITALS: BP 136/86; RESP 18
[2017-06-03] MEDS ORDERED: VITAMIN A & D 5 GM OINT PACKET TOP ONE (16:11)
--- NOTE | 2017-06-03 16:23 | PN ---
Date/Time of Note Date/Time of Note DATE: 06/03/17 TIME: 16:21 Assessment/Plan VTE Prophylaxis VTE Prophylaxis Intervention: SCD's Lines/Catheters IV Catheter Type (from Nrs): Saline Lock Urinary Cath still in place: No Assessment/Plan Chief Complaint/Hosp Course 1. Lower extremity paraplegia with UE weakness - Most probably MS and Neurology on board. 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 -Neurosurgery has been consulted for evaluation, states, incidental finding, unrelated to current condition. 2. Psoriasis, scalp - continue topical steroids while in hospital as needed 3. Chest pain- resolved - most likely musculoskeletal in nature -had episode of chest pain again on 05/29/17, workup negative 4. PT/OT 5. Disposition -okay for transfer to SNF, for outpatient followup with neurology. Problems: Subjective 24 Hr Interval Summary Free Text/Dictation patient still frustrated there is no clear answer for his condition. explained to patient that more studies in the outpatient setting must be done to fully elucidate cause of his illness. Exam/Review of Systems Vital Signs Vitals Vital Signs Date Time Temp Pulse Resp B/P Pulse Ox O2 Delivery O2 Flow Rate FiO2 06/03/17 14:27 98.4 75 18 136/86 95 Intake and Output 06/02/17 06/02/17 06/03/17 15:00 23:00 07:00 Intake Total 1440 ml 920 ml Balance 1440 ml 920 ml Exam General: resting comfortably. NAD. intermittent chest pain CVS: regular rate and rhythm. no murmurs Lungs: CTA b/l. no wheezes or crackles Abd: soft, NT, ND. no rebound or guarding Ext: lower extremity wasting , no swelling, cyanosis, Neuro: +3/5 RUE strength, Increased tone, with spasticity on the left. Lower extremities: No movements, increased tone bilaterally, severe paresthesias Medications Medications Current Medications Aspirin (Aspirin) 81 mg DAILY PO Last administered on 06/03/17 08:54; Admin Dose 81 MG; Start 05/18/17 at 09:00 Nitroglycerin (Nitroglycerin (Sl Tab) 0.4 Mg) 1 tab Q5M PRN SL ANGINA; Start at 06:30 Heparin Sodium (Porcine) (Heparin (5000 Units/0.5 ml)) 5,000 unit BID SC Last administered on 06/03/17 09:35; Admin Dose 5,000 UNIT; Start 05/18/17 at 09:00 Metoprolol Tartrate (Lopressor) 25 mg BID PO Last administered on 06/03/17 08: 55; Admin Dose 25 MG; Start 05/18/17 at 09:00 Acetaminophen (Tylenol Tab) 650 mg Q6H PRN PO PAIN AND OR ELEVATED TEMP; Start 05/18/17 at 06:30 Morphine Sulfate (morphine) 2 mg Q4H PRN IV SEVERE PAIN LEVEL 7-10 Last administered on 06/02/17 20:45; Admin Dose 2 MG; Start 05/18/17 at 06:30 Miscellaneous Information (Pending [facility] Order For Wound Care) This patient lara... PRN PRN XX WOUND CARE; Start 05/18/17 at 12:30 Lorazepam (Ativan) 0.5 mg Q4 PRN PO AGITATION Last administered on 06/03/17 01 :45; Admin Dose 0.5 MG; Start 05/21/17 at 04:00 Morphine Sulfate (morphine) 2 mg Q2H PRN IM PAIN Last administered on 06:09; Admin Dose 2 MG; Start 05/21/17 at 04:30 Polyethylene Glycol (Miralax) 17 gm DAILY PRN PO CONSTIPATION Last administered on 05/30/17 15:11; Admin Dose 17 GM; Start 05/30/17 at 14:30 Senna (Senokot) 2 tab BID PO Last administered on 06/03/17 08:54; Admin Dose 2 TAB; Start 05/30/17 at 21:00 Docusate Sodium (Colace) 100 mg BID PO Last administered on 06/03/17 08:54; Admin Dose 100 MG; Start 05/30/17 at 21:00 EDDIE WELCH Jun 03, 2017 16:23
[2017-06-03] MEDS: morphine 10 MG INJ IM PRN (20:25)
[2017-06-03 20:41] VITALS: BP 122/88; PULSE 83; RESP 20
[2017-06-04] MEDS: morphine 2 MG INJ IV PRN ×3 (00:17→21:48)
[2017-06-04 08:03] VITALS: BP 119/78; RESP 20
[2017-06-04] MEDS: HEPARIN 5,000 UNIT/0.5 ML VIAL SC SCH ×2 (09:44→20:09)
[2017-06-04] MEDS: METOPROLOL 25 MG TAB PO SCH ×2 (09:56→20:01)
[2017-06-04] MEDS: SENNA TAB PO SCH ×2 (09:56→20:00)
[2017-06-04] MEDS: DOCUSATE SODIUM 100 MG CAP PO SCH ×2 (09:56→20:01)
[2017-06-04] MEDS: ASPIRIN 81 MG TAB PO SCH (09:56)
--- NOTE | 2017-06-04 12:42 | PN ---
Date/Time of Note Date/Time of Note DATE: 06/04/17 TIME: 12:38 Assessment/Plan VTE Prophylaxis VTE Prophylaxis Intervention: SCD's Lines/Catheters IV [facility] Saline Lock Urinary Cath still in place: No Assessment/Plan Chief Complaint/Hosp Course 1. Lower extremity paraplegia with UE weakness - Most probably MS and Neurology on board. 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 -refused lumbar puncture -only partial spine MRI could be done 2/ movement -neurology has signed off, states to notify if needed. -Neurosurgery has been consulted for evaluation, states, incidental finding, unrelated to current condition. 2. Psoriasis, scalp - continue topical steroids while in hospital as needed 3. Chest pain- resolved - most likely musculoskeletal in nature -had episode of chest pain again on 05/29/17, workup negative 4. PT/OT 5. Disposition -okay for transfer to SNF, for outpatient followup with neurology. -Patient refused transfer, explained to patient that no promise to transfer to [facility] was ever made -will consult CM to arrange neurology outpatient, as patient will need further outpatient workup -may be very difficult to convince patient to transfer to SNF, but explained that we will approach each step one at a time. Problems: Subjective 24 Hr Interval Summary Free Text/Dictation Patient refused to go to [facility] yesterday, wants to be transferred to [facility]. Spoke with patient at length regarding plan. Exam/Review of Systems Vital Signs Vitals Vital Signs Date Time Temp Pulse Resp B/P Pulse Ox O2 Delivery O2 Flow Rate FiO2 06/04/17 08:03 97.3 72 20 119/78 97 06/03/17 20:41 Room Air Intake and Output 06/03/17 06/03/17 06/04/17 15:00 23:00 07:00 Intake Total 1600 ml Output Total 500 ml Balance 1100 ml Exam General: resting comfortably. NAD. intermittent chest pain CVS: regular rate and rhythm. no murmurs Lungs: CTA b/l. no wheezes or crackles Abd: soft, NT, ND. no rebound or guarding Ext: lower extremity wasting , no swelling, cyanosis, Neuro: +3/5 RUE strength, Increased tone, with spasticity on the left. Lower extremities: No movements, increased tone bilaterally, severe paresthesias Medications Medications Current Medications Aspirin (Aspirin) 81 mg DAILY PO Last administered on 06/04/17 09:56; Admin Dose 81 MG; Start 05/18/17 at 09:00 Nitroglycerin (Nitroglycerin (Sl Tab) 0.4 Mg) 1 tab Q5M PRN SL ANGINA; Start at 06:30 Heparin Sodium (Porcine) (Heparin (5000 Units/0.5 ml)) 5,000 unit BID SC Last administered on 06/04/17 09:44; Admin Dose 5,000 UNIT; Start 05/18/17 at 09:00 Metoprolol Tartrate (Lopressor) 25 mg BID PO Last administered on 06/04/17 09: 56; Admin Dose 25 MG; Start 05/18/17 at 09:00 Acetaminophen (Tylenol Tab) 650 mg Q6H PRN PO PAIN AND OR ELEVATED TEMP; Start 05/18/17 at 06:30 Morphine Sulfate (morphine) 2 mg Q4H PRN IV SEVERE PAIN LEVEL 7-10 Last administered on 06/04/17 11:48; Admin Dose 2 MG; Start 05/18/17 at 06:30 Miscellaneous Information (Pending [facility] Order For Wound Care) This patient lara... PRN PRN XX WOUND CARE; Start 05/18/17 at 12:30 Lorazepam (Ativan) 0.5 mg Q4 PRN PO AGITATION Last administered on 06/03/17 01 :45; Admin Dose 0.5 MG; Start 05/21/17 at 04:00 Morphine Sulfate (morphine) 2 mg Q2H PRN IM PAIN Last administered on 20:25; Admin Dose 2 MG; Start 05/21/17 at 04:30 Polyethylene Glycol (Miralax) 17 gm DAILY PRN PO CONSTIPATION Last administered on 05/30/17 15:11; Admin Dose 17 GM; Start 05/30/17 at 14:30 Senna (Senokot) 2 tab BID PO Last administered on 06/04/17 09:56; Admin Dose 2 TAB; Start 05/30/17 at 21:00 Docusate Sodium (Colace) 100 mg BID PO Last administered on 06/04/17 09:56; Admin Dose 100 MG; Start 05/30/17 at 21:00 EDDIE WELCH Jun 04, 2017 12:42
[2017-06-04 13:33] VITALS: BP 124/69; RESP 20
[2017-06-04] MEDS ORDERED: ONDANSETRON 4 MG INJ IV PRN (15:00)
[2017-06-04 20:09] VITALS: BP 132/86; RESP 20
[2017-06-05 02:00] VITALS: BP 129/72; RESP 18
[2017-06-05] MEDS: morphine 2 MG INJ IV PRN ×2 (02:08→10:46)
[2017-06-05] MEDS: ASPIRIN 81 MG TAB PO SCH (10:03)
[2017-06-05] MEDS: DOCUSATE SODIUM 100 MG CAP PO SCH (10:04)
[2017-06-05] MEDS: METOPROLOL 25 MG TAB PO SCH (10:04)
[2017-06-05] MEDS: SENNA TAB PO SCH (10:04)
[2017-06-05] MEDS: HEPARIN 5,000 UNIT/0.5 ML VIAL SC SCH (10:13)
[2017-06-05] MEDS ORDERED: HYDROCODONE/APAP (5/325) TAB PO PRN (11:00)
--- NOTE | 2017-06-05 11:24 | PN ---
Date/Time of Note Date/Time of Note DATE: 06/05/17 TIME: 10:39 Assessment/Plan VTE Prophylaxis VTE Prophylaxis Intervention: SCD's Lines/Catheters IV Catheter Type (from Nrs): Saline Lock Urinary Cath still in place: No Assessment/Plan Assessment/Plan 1. Lower extremity paraplegia with UE weakness- Most likely MS - Patient still convinced his symptoms are induced by Lymes disease. Lymes test negative - MRI shows demyelination consistent with MS. 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 2. Psoriasis, scalp - continue topical steroids while in hospital as needed 3. Chest pain- resolved - most likely musculoskeletal in nature -had episode of chest pain again on 05/29/17, workup negative 4. PT/OT 5. Disposition - Medically cleared for discharge to SNF. Set up for outpatient Neurology follow up Subjective 24 Hr Interval Summary Free Text/Dictation Patient c/o generalized body aches but controlled with pain medications. Patient tolerating diet well and no acute overnight events. Remains stable and agreeable to SNF. Exam/Review of Systems Vital Signs Vitals Vital Signs Date Time Temp Pulse Resp B/P Pulse Ox O2 Delivery O2 Flow Rate FiO2 06/05/17 02:00 98.0 79 18 129/72 96 06/03/17 20:41 Room Air Intake and Output 06/04/17 06/04/17 06/05/17 15:00 23:00 07:00 Intake Total 600 ml 1000 ml Balance 600 ml 1000 ml Exam General: resting comfortably. NAD CVS: regular rate and rhythm. no murmurs Lungs: CTA b/l. no wheezes or crackles Abd: soft, NT, ND. no rebound or guarding Ext: lower extremity wasting , no swelling, cyanosis, Neuro: +3/5 RUE strength, Increased tone, with spasticity on the left. Lower extremities: No movements, increased tone bilaterally, severe paresthesias Skin: dermatitis of cheeks Medications Medications Current Medications Aspirin (Aspirin) 81 mg DAILY PO Last administered on 06/05/17t 10:03; Admin Dose 81 MG; Start 05/18/17 at 09:00 Nitroglycerin (Nitroglycerin (Sl Tab) 0.4 Mg) 1 tab Q5M PRN SL ANGINA; Start at 06:30 Heparin Sodium (Porcine) (Heparin (5000 Units/0.5 ml)) 5,000 unit BID SC Last administered on 06/05/17 10:13; Admin Dose 5,000 UNIT; Start 05/18/17 at 09:00 Metoprolol Tartrate (Lopressor) 25 mg BID PO Last administered on 06/05/17 10: 04; Admin Dose 25 MG; Start 05/18/17 at 09:00 Acetaminophen (Tylenol Tab) 650 mg Q6H PRN PO PAIN AND OR ELEVATED TEMP; Start 05/18/17 at 06:30 Morphine Sulfate (morphine) 2 mg Q4H PRN IV SEVERE PAIN LEVEL 7-10 Last administered on 06/05/17 02:08; Admin Dose 2 MG; Start 05/18/17 at 06:30 Miscellaneous Information (Pending [facility] Order For Wound Care) This patient lara... PRN PRN XX WOUND CARE; Start 05/18/17 at 12:30 Lorazepam (Ativan) 0.5 mg Q4 PRN PO AGITATION Last administered on 06/03/17 01 :45; Admin Dose 0.5 MG; Start 05/21/17 at 04:00 Morphine Sulfate (morphine) 2 mg Q2H PRN IM PAIN Last administered on 20:25; Admin Dose 2 MG; Start 05/21/17 at 04:30 Polyethylene Glycol (Miralax) 17 gm DAILY PRN PO CONSTIPATION Last administered on 05/30/17 15:11; Admin Dose 17 GM; Start 05/30/17 at 14:30 Senna (Senokot) 2 tab BID PO Last administered on 06/05/17 10:04; Admin Dose 2 TAB; Start 05/30/17 at 21:00 Docusate Sodium (Colace) 100 mg BID PO Last administered on 06/05/17 10:04; Admin Dose 100 MG; Start 05/30/17 at 21:00 Ondansetron HCl (Zofran Inj) 4 mg Q6H PRN IV NAUSEA AND/OR VOMITING; Start 06/04/17 at 15:00 Acetaminophen/ Hydrocodone Bitart ([place] (5/325)) 1 tab Q6H PRN PO PAIN LEVEL 6 -10; Start 06/05/17 at 11:00; Status UNV SARAHY CABRERA MD Jun 05, 2017 10:39
--- NOTE | 2017-06-05 13:44 | PDOCDIS ---
Discharge Instructions DIAGNOSIS Discharge Diagnosis 1. Lower extremity paraplegia with UE weakness- Multiple sclerosis on MRI 2. Psoriasis, scalp 3. Chest pain- resolved CONDITION Patient Condition: Good HOME CARE INSTRUCTIONS: Diet Instructions: RegularSpecial Diet: regular ACTIVITY: Activity Restrictions: No Restrictions FOLLOW UP/APPOINTMENTS Follow-up Plan 1. You will need to follow up with Neurology as an outpatient for further workup of your weakness that has been chronic 2. Follow up with your primary care physician once discharged from senior care facility 3. If you have any worsening symptoms, return to the ED SARAHY CABRERA MD Jun 05, 2017 13:44
[2017-06-05 14:06] VITALS: BP 129/101; RESP 19
== END 2017-06-05 17:50 | DRG 206 ==
LOC: E/R 23:20 → MS4 05-18 03:32 → MS2 05-25 22:01
PROVIDERS: ADMIT Internal Medicine; ATTEND Internal Medicine
DX: M94.0 Chondrocostal junction syndrome [Tietze] (principal); G95.0 Syringomyelia and syringobulbia; G82.20 Paraplegia, unspecified; G35 Multiple sclerosis; M48.04 Spinal stenosis, thoracic region; L40.9 Psoriasis, unspecified; R07.9 Chest pain, unspecified; Z86.19 Personal history of other infectious and parasitic diseases; H49.9 Unspecified paralytic strabismus; Q06.4 Hydromyelia; Z98.1 Arthrodesis status; M40.50 Lordosis, unspecified, site unspecified; Z53.29 Procedure and treatment not carried out because of patient's decision for other reasons; Z76.5 Malingerer [conscious simulation]
CPT/HCPCS: 36415; 70552; 70553; 71010; 72142; 72147; 80048; 80053; 80069; 82607; 83036; 83735; 84100; 84484; 85025; 85610; 85651; 85730; 86038; 86140; 86592; 86617; 86703; 93005; 97110; 97163; 97167; 97530; 97535; A4310; J1644; J2060; J2270; J2930